=== PATIENT | male | born 1950 | race Caucasian/White ===

== ENCOUNTER → 2016-07-01 | Outpatient (CLI) | payer BC, OTHER ==
[~2016-07-01] MED LIST: ATOR10TA88 PO; CANA1TAB PO; HYDR-5688 PO; METF-384 PO; METF1TAB53 PO; MULT-513 PO; SITA100T3 PO
[2016-07-01 10:59] LABS: BASO % 0.1 %; BASO ABS # 0.01 K/uL (0-0.2); COMPLETE YES; IG% 0.1 %; LYMPH % 22.3 %; MEAN CELL VOLUME 92.6 fL (80-100); MEAN CORPUSCULAR HEMOGLOBIN 32.5 pg (25-34); MEAN CORPUSCULAR HGB CONC 35.1 g/dl (32-36); MEAN PLATELET VOLUME 9.4 fL (7.4-10.4); MONO % 5.9 %; NEUT % 70.6 %; PLATELET COUNT 206 K/uL (130-400); RED BLOOD COUNT 4.21 M/uL (4.7-6.1); WHITE BLOOD COUNT 6.74 K/uL (4.8-10.8)
[2016-07-01 11:17] LABS: ESTIMATED AVERAGE GLUCOSE 143 mg/dl; HA1C FLAG Normal (Normal)
[2016-07-01 11:31] LABS: CHOLESTEROL/HDL RATIO 2.1; PROSTATE SPECIFIC ANTIGEN 3.64 ng/ml (0.000-4.000)
--- NOTE | 2016-09-06 10:08 | CODING QUERY MEDICAL NECESSITY ---
SUPPORTING DIAGNOSIS NEEDED Dr. Ventura, A supporting diagnosis is required for the test/procedure performed on this patient in order for us to be reimbursed by the patient's insurance. Please provide a supporting diagnosis for the following test/procedure listed below next to the test name along with your signature. *If there is no additional diagnosis for this patient that would support the following test/procedure please document that below next to the test/procedure. Test(s)/Procedure(s) that require a supporting diagnosis: * [id number] GLYCATED HEMOGLOBIN DIAGNOSIS: * [id number] PSA DIAGNOSIS: DATE OF SERVICE: 07/01/16 Provider Signature: Date: Thank you Scott Ibarra Health Information Management Once completed, please kindly fax back to [phone] For questions please call [phone]
== END | disposition home or self-care (01) ==
LOC: C.LABBC 08:51
PROVIDERS: ATTEND Internal Medicine
DX: C44.91 Basal cell carcinoma of skin, unspecified (principal); R97.20 Elevated prostate specific antigen [PSA]; E11.9 Type 2 diabetes mellitus without complications

== ENCOUNTER → 2017-02-23 | Day surgery (SDC) | payer BC ==
[2017-02-08 11:20] VITALS: Ht 182.9 cm; Wt 111.4 kg
[~2017-02-23] VITALS: Ht 182.9 cm; Wt 111.4 kg
[~2017-02-23] MED LIST changes: -HYDR-5688 PO; +LIDOCAINE HCL 2% 2 ML VIAL (20MG/ML) ONE; +MIDAZOLAM HCL 1 MG/ML 2ML VIAL ONE; +ONDANSETRON INJ 2 MG/ML 2 ML VIAL ONE; +PROPOFOL IV EMULSION 10 MG/ML 20 ML VIAL IV ONE; -SITA100T3 PO; +SODIUM CHLORIDE 0.9% 500ML 500 ML IV ONE
[2017-02-23 13:38] VITALS: TEMP 37.1
--- NOTE | 2017-02-23 13:57 | Endo History and Physical ---
History & Physical Date of Service: Feb 23, 2017. Chief Complaint: screening,history of polyps Referring Physician: Dr. Patrick Ventura History of Present Illness 66 yo CM who presents for colonoscopy secondary to history of colon polyps and family history of colon cancer in father. Past Surgical History Hx Cardiac Surgery: No Hx Internal Defibrillator: No Hx Pacemaker: No Hx Abdominal Surgery: Yes (APPY) Hx of Implantable Prosthesis: No Hx Post-Op Nausea and Vomiting: No Hx Cancer Surgery: Yes (BCC REMOVAL ARM) Hx Thoracic Surgery: No Hx Orthopedic: No Hx Urinary Tract Surgery: No Family History Colon CA Social History Smoking Status: Never Smoker Hx Substance Use: No Hx Alcohol Use: No Allergies Coded Allergies: No Known Allergies (Verified , 02/23/17) Current Medications Reported Home Medications Medications Dose Route/Sig Max Daily Dose Days Date Category Invokana (Canagliflozin) 100 Mg Tab 1 Tab PO QAM 02/08/17 Reported Mvi With Minerals (Multivitamins/Minerals) Tab 1 Tab PO QAM 02/15/16 Reported Lipitor (Atorvastatin Calcium) 10 Mg Tab 10 Mg PO QPM 02/15/16 Reported Glucophage Ext Rel (Metformin Hcl) 1,000 Mg Tab 0.5 Tab PO QPM 02/15/16 Reported Glucophage (Metformin Hcl) 1,000 Mg Tab 1,000 Mg PO QAM 02/15/16 Reported Vital Signs Weight (Kilograms): 111.36 Height (Feet): 6 Height (Inches): 0 Date Time Temp Pulse Resp B/P (MAP) Pulse Ox O2 Delivery O2 Flow Rate FiO2 02/23/17 13:38 37.1 73 18 154/84 (107) 98 Room Air Physical Exam General Appearance: WD/WN, no apparent distress Respiratory/Chest: Auscultation: breath sounds normal Cardiovascular: Heart Auscultation: RRR Abdomen: Bowel Sounds: normal Inspection & Palpation: soft, non-distended, no tenderness, guarding & rebound Assessment and Plan Assessment: 66 yo CM who presents for colonoscopy secondary to history of colon polyps and family history of colon cancer in father. Plan: Proceed with colonoscopy.
--- NOTE | 2017-02-23 14:20 | GI REPORT ---
Procedure Date: 02/23/2017 2:01 PM Procedure: Colonoscopy Indications: High risk colon cancer surveillance: Personal history of colonic polyps, Family history of colon cancer in a first-degree relative Medicines: Monitored Anesthesia Care Complications: No immediate complications. Estimated Blood Loss: Estimated blood loss: none. Procedure: Pre-Anesthesia Assessment: - Prior to the procedure, a History and Physical was performed, and patient medications and allergies were reviewed. The patient's tolerance of previous anesthesia was also reviewed. The risks and benefits of the procedure and the sedation options and risks were discussed with the patient. All questions were answered, and informed consent was obtained. Prior Anticoagulants: The patient has taken no previous anticoagulant or antiplatelet agents. ASA Grade Assessment: II - A patient with mild systemic disease. After reviewing the risks and benefits, the patient was deemed in satisfactory condition to undergo the procedure. After I obtained informed consent, the scope was passed under direct vision. Throughout the procedure, the patient's blood pressure, pulse, and oxygen saturations were monitored continuously. The scope was introduced through the anus and advanced to the cecum, identified by appendiceal orifice and ileocecal valve. The colonoscopy was performed without difficulty. The patient tolerated the procedure well. The quality of the bowel preparation was good. The ileocecal valve, appendiceal orifice, and rectum were photographed. Findings: A 6 mm polyp was found in the transverse colon. The polyp was sessile. The polyp was removed with a hot snare. Resection and retrieval were complete. Multiple small-mouthed diverticula were found in the sigmoid colon. Impression: - One 6 mm polyp in the transverse colon, removed with a hot snare. Resected and retrieved. - Diverticulosis in the sigmoid colon. Recommendation: - Resume previous diet. - Continue present medications. - Repeat colonoscopy for surveillance based on pathology results. - Return to primary care physician as previously scheduled. Zac Cerda, DO 02/23/2017 2:20:21 PM This report has been signed electronically. Note Initiated On: 02/23/2017 2:01 PM I attest to the content of the Intraoperative Record and orders documented therein, exceptions below
--- NOTE | 2017-02-23 14:21 | Discharge Instructions ---
Endoscopy Patient Instructions Date / Procedure(s) Performed Feb 23, 2017. Colonoscopy Allergy Information Coded Allergies: No Known Allergies (Verified , 02/23/17) Discharge Date / Findings Feb 23, 2017. Colon polyp Diverticulosis Medication Instructions OK to resume all medications today as prescribed Reported Home Medications Medications Dose Route/Sig Max Daily Dose Days Date Category Invokana (Canagliflozin) 100 Mg Tab 1 Tab PO QAM 02/08/17 Reported Mvi With Minerals (Multivitamins/Minerals) Tab 1 Tab PO QAM 02/15/16 Reported Lipitor (Atorvastatin Calcium) 10 Mg Tab 10 Mg PO QPM 02/15/16 Reported Glucophage Ext Rel (Metformin Hcl) 1,000 Mg Tab 0.5 Tab PO QPM 02/15/16 Reported Glucophage (Metformin Hcl) 1,000 Mg Tab 1,000 Mg PO QAM 02/15/16 Reported Provider Instructions Activity Restrictions - No exercising or heavy lifting for 24 hours. - Do not drink alcohol the day of the procedure. - Do not drive a car or operate machinery until the day after the procedure. - Do not make any important decisions or sign important papers in 24 hours after the procedure. Following Day: - Return to full activity which may include returning to work/school. Diet Start your diet with liquids and light foods (jello, soup, juice, toast). Then eat your usual diet if not nauseated. Treatment For Common After Affects For mild abdominal pain, bloating, or excessive gas: - Rest - Eat lightly - Lie on right side Follow-Up Information Follow-up with Dr. Patrick Ventura as scheduled Anesthesia Information What You Should Know You have had a procedure that required some medicine to reduce anxiety and discomfort. This treatment is called moderate sedation. After receiving the treatment, you may be sleepy, but you will be able to breathe on your own. The effects of the treatment may last for several hours. Follow these instructions along with Activity/Diet recommendations noted above: * Do NOT do anything where dizziness or clumsiness would be dangerous. * Rest quietly at home today, then you can be up and about tomorrow. * Have a responsible person stay with you the rest of today. * You may have had an I.V. today. If so, you may take the dressing off later today. Recommendations Call your doctor if: * Trouble breathing * Continuous vomiting for more than 24 hours * Temperature above 101 degrees * Severe abdominal pain or bloating * Pain not relieved by pain medicine ordered * There is increased drainage or redness from any incision * A large amount of rectal bleeding greater than 2-3 tablespoons. (If you had a polyp/s removed or have hemorrhoids, a small amount of blood - from the rectum is to be expected.) * You have any unanswered questions or concerns. IN THE EVENT OF A SERIOUS EMERGENCY, GO TO THE NEAREST EMERGENCY ROOM Your discharge instructions were prepared by provider Zac Cerda. Patient Instructions Signature Page Naun Lisa Patient (or Guardian) Signature/Date: I have read and understand the instructions given to me by my caregivers. Caregiver/RN/Doctor Signature/Date: The above-named patient and/or guardian has received patient instructions on this date. + Original Patient Signature Page (only) stays with chart. Please make copy for patient.
--- NOTE | 2017-02-23 14:49 | Anesthesiology Progress Note ---
Anesthesia Post Op Note Date & Time Feb 23, 2017 at 14:48 Vital Signs Pain Intensity: 0 Vital Signs Past 12 Hours Date Time Temp Pulse Resp B/P (MAP) Pulse Ox O2 Delivery O2 Flow Rate FiO2 02/23/17 14:37 67 18 137/88 (104) 96 Room Air 02/23/17 14:22 61 18 153/76 (101) 95 Room Air 02/23/17 13:38 37.1 73 18 154/84 (107) 98 Room Air Notes Mental Status: alert / awake / arousable, participated in evaluation Pt Amnestic to Procedure: Yes Nausea / Vomiting: adequately controlled Pain: adequately controlled Airway Patency, RR, SpO2: stable & adequate BP & HR: stable & adequate Hydration State: stable & adequate Anesthetic Complications: no major complications apparent
[2017-02-23 14:50] VITALS: BP 156/71; PULSE 68; O2SAT 97
== END | disposition home or self-care (01) ==
LOC: C.GI 13:15
PROVIDERS: ATTEND Internal Medicine
DX: Z12.11 Encounter for screening for malignant neoplasm of colon (principal); D12.3 Benign neoplasm of transverse colon; K57.30 Diverticulosis of large intestine without perforation or abscess without bleeding; Z80.0 Family history of malignant neoplasm of digestive organs; E11.9 Type 2 diabetes mellitus without complications

== ENCOUNTER → 2017-10-09 | Outpatient (CLI) | payer BC ==
[~2017-10-09] MED LIST changes: +ATOR10TA82 PO; -ATOR10TA88 PO; -LIDOCAINE HCL 2% 2 ML VIAL (20MG/ML) ONE; -MIDAZOLAM HCL 1 MG/ML 2ML VIAL ONE; -ONDANSETRON INJ 2 MG/ML 2 ML VIAL ONE; -PROPOFOL IV EMULSION 10 MG/ML 20 ML VIAL IV ONE; -SODIUM CHLORIDE 0.9% 500ML 500 ML IV ONE
[2017-10-09 12:24] LABS: BASO % 0.1 %; BASO ABS # 0.01 K/uL (0-0.2); EOS % 1.6 %; EOS ABS # 0.12 K/uL (0-0.5); HEMATOCRIT 45.2 % (42-52); HEMOGLOBIN 15.9 g/dL (14.0-18.0); IG# 0.02 K/uL (0.00-0.02); LYMPH % 25.4 %; LYMPH ABS # 1.94 K/uL (1.2-3.4); MEAN CELL VOLUME 93.4 fL (80-100); MEAN CORPUSCULAR HEMOGLOBIN 32.9 pg (25-34); MEAN CORPUSCULAR HGB CONC 35.2 g/dl (32-36); MEAN PLATELET VOLUME 9.5 fL (7.4-10.4); MONO % 6.7 %; MONO ABS # 0.51 K/uL (0.11-0.59); NEUT % 65.9 %; NEUT ABS # 5.05 K/uL (1.4-6.5); PLATELET COUNT 199 K/uL (130-400); RED CELL DISTRIBUTION WIDTH CV 12.5 % (11.5-14.5); RED CELL DISTRIBUTION WIDTH SD 42.5 fL (36.4-46.3); WHITE BLOOD COUNT 7.65 K/uL (4.8-10.8)
[2017-10-09 12:42] LABS: HEMOGLOBIN A1C 7.4 % (4.5-5.6)
[2017-10-09 12:49] LABS: ALBUMIN 4.2 gm/dl (3.4-5.0); ALT/SGPT 38 U/L (12-78); AST/SGOT 27 U/L (15-37); BLOOD UREA NITROGEN 24 mg/dl (7-18); CALCIUM 9.4 mg/dl (8.5-10.1); CARBON DIOXIDE 26 mmol/L (21-32); CHOLESTEROL 172 mg/dl (0-200); CREATININE 0.95 mg/dl (0.60-1.40); GLUCOSE 128 mg/dl (70-99); SODIUM 139 mmol/L (136-145)
[2017-10-09 12:52] LABS: ALKALINE PHOSPHATASE 114 U/L (45-117); LDL CHOLESTEROL CALCULATED 76 mg/dl; TOTAL PROTEIN 7.8 gm/dl (6.4-8.2)
== END | disposition home or self-care (01) ==
LOC: C.LAB1850 10:31
PROVIDERS: ATTEND Internal Medicine
DX: Z00.00 Encounter for general adult medical examination without abnormal findings (principal); N40.3 Nodular prostate with lower urinary tract symptoms; R03.0 Elevated blood-pressure reading, without diagnosis of hypertension; E11.9 Type 2 diabetes mellitus without complications; G47.33 Obstructive sleep apnea (adult) (pediatric); D36.9 Benign neoplasm, unspecified site

== ENCOUNTER 2024-09-25 13:08 | Inpatient (IN) ==
--- NOTE | 2024-09-25 13:43 | XRay Report ---
XR ankle RT min 3V routine CLINICAL HISTORY: fall COMPARISON: None FINDINGS: There is an oblique fracture of the distal fibular shaft. There is an avulsion fracture of the medial malleolus. There is medial translation of the distal tibia in relationship to the talar d ome. On the lateral view, the posterior malleolus appears intact. Posterior aspect of the talar dome is flattened and an associated posterior talar fracture is not excluded. IMPRESSION: Unstable bimalleolar fracture with posterior and medial displacement of the distal tibia in relationship to the talus. Flattening of the talar dome on the lateral view suggestive of an assoc iated posterior talar fracture. ACT 112: Negative or not required by law. Electronically signed by: Vinita Diego M.D. 09/25/2024 1:42 PM
--- NOTE | 2024-09-25 13:44 | XRay Report ---
XR chest 1V portable CLINICAL HISTORY: new afib COMPARISON STUDY: 03/28/2020 FINDINGS: Single view portable chest is unchanged demonstrating cardiomegaly and mild pulmonary vascu lar congestion. No airspace opacity or pleural effusion. There is no pneumothorax. There is no medias tinal widening. IMPRESSION: Stable exam; no acute process identified. ACT 112: Negative or not required by law. Electronically signed by: Vinita Diego M.D. 09/25/2024 1:43 PM
[2024-09-25 13:46] LABS: Basophils # (auto) 0.01 K/uL (0.00-0.20); Basophils % (auto) 0.1 %; Eosinophils # (auto) 0.08 K/uL (0.00-0.50); Eosinophils % (auto) 0.6 %; Hematocrit (blood only) 45.1 % (42.0-52.0); Hemoglobin 15.7 g/dl (14.0-18.0); Immature Granulocytes # (auto) 0.05 K/uL (0.01-0.20); Immature Granulocytes % (auto) 0.4 %; Lymphocytes # (auto) 1.21 K/uL (1.20-3.40); Lymphocytes % (auto) 9.7 %; Mean Corpuscular Hemoglobin 32.8 pg (25.0-34.0); Mean Corpuscular Hgb Conc 34.8 g/dL (32.0-36.0); Mean Corpuscular Volume 94.4 fL (80.0-100.0); Mean Platelet Volume 9.1 fL (9.4-12.4); Monocytes # (auto) 0.65 K/uL (0.11-0.59); Monocytes % (auto) 5.2 %; Neutrophils # (auto) 10.47 K/uL (1.40-6.50); Platelet Count 193 K/uL (130-400); RDW Coefficient of Variation 11.9 % (11.5-14.5); RDW Standard Deviation 41.5 fL (36.4-46.3); Red Blood Count 4.78 M/uL (4.70-6.10); White Blood Count 12.47 K/ul (4.8-10.8)
[2024-09-25 14:07] LABS: Albumin Globulin Ratio 1.6 (0.9-2); Albumin Level 4.4 gm/dl (3.4-5.0); BUN Creatinine Ratio 28.4 (10-20); Bilirubin,Total 0.8 mg/dl (0.2-1.0); Calcium 9.5 mg/dl (8.6-10.3); Creatinine Clr Calc Pharmacy 88.7 ml/min; Globulin 2.8 gm/dl (2.5-4.0); Potassium 4.2 mmol/L (3.5-5.1); Total Protein 7.2 gm/dl (6.0-8.3)
[2024-09-25 14:12] LABS: Partial Thromboplastin Ratio 0.9; Partial Thromboplastin Time 23 Seconds (21-31)
[2024-09-25] MEDS: KETOROLAC TROMETHAMINE 15 MG/ML VIAL IV ONE (14:23)
[2024-09-25] MEDS: MoRPHine SULFATE 4 MG/ML 1 ML CARP\\VIAL IV STA ×2 (14:26→20:18)
--- NOTE | 2024-09-25 14:45 | Emergency Department Note ---
History of Present Illness General Chief complaint: Fall Stated complaint: FALL, R ANKLE INJURY, CARDIAC ASSESSMENT Time Seen by Provider: 09/25/24 13:40 Source: patient Mode of arrival: EMS Limitations: physical limitation History of Present Illness Maximum Pain Intensity: 10 Patient is a 74-year-old male presents with right ankle injury after sliding in the mud while doing yard work today. Obvious deformity and swelling to the right ankle. No open fracture noted. EMS gave patient IV pain medication and noticed he was in new onset atrial fibrillation. Patient denies any head, neck, back injury. Home Medications Medication Instructions Recorded Confirmed Type multivitamin (Multiple Vitamins 1 tab PO QAM 02/21/19 09/25/24 History tablet) blood sugar diagnostic (Leap In EntertainmentTouch #50 ea 06/30/20 09/25/24 Rx Verio test strips) blood-glucose meter ([employer]Touch #1 ea 06/30/20 09/25/24 Rx Verio Flex Start kit) lancets 33 gauge (OneTouch Delica #100 ea 06/30/20 09/25/24 Rx Lancets) metformin 1,000 mg tablet 1,000 mg PO BID #180 tabs 02/26/24 09/25/24 Rx ramipril 5 mg capsule 5 mg PO QAM #90 caps 04/11/24 09/25/24 Rx atorvastatin 10 mg tablet 10 mg PO HS #90 tabs 05/15/24 09/25/24 Rx canagliflozin 300 mg tablet 300 mg PO DAILY 09/25/24 09/25/24 History (Invokana) Allergies Allergy/AdvReac Type Severity Reaction Status Date / Time No Known Allergies Allergy Verified 07/08/24 08:40 Past Med/Surg History Problem List (Updated 09/25/24 @ 16:34 by Chuck De Anda MD) Atrial flutter (Acute) Bimalleolar ankle fracture (Acute) Closed right ankle fracture Sinusitis Erectile dysfunction History of colon polyps Encounter for pre-operative examination Venous insufficiency of right lower extremity (Chronic) Dyspnea on exertion (Chronic) Type 2 diabetes mellitus (Chronic) HTN (hypertension) (Chronic) Hyperlipidemia LDL goal <100 (Chronic) Family history of colon cancer (Chronic) History of colon polyps (Chronic) tubular adenoma Skin cancer (Chronic) Obstructive sleep apnea (Chronic) 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 Baez History of varicose vein ligation and stripping History of colonoscopy H/O shoulder surgery RT History of appendectomy Family History Unknown Arteriosclerotic cardiovascular disease (ASCVD) Father Diabetes Colon cancer Hypertension Macular degeneration Mother Liver cancer Brother Hypertension Epilepsy Social History Smoking Status: Never smoker Second Hand Exposure: No; Do You Dip or Chew Tobacco: No; Hx Alcohol Use: Yes Alcohol type: beer Alcohol Intake Frequency: 2-4 x/Month Hx Substance Use: No Preferred Language: Amharic Communication Ability: Effective Visual Impairment: Limited Hearing Ability: Normal Oyster Fisherman Required: No Beliefs That Will Affect Care: None marital status: Current Living Situation: Spouse current occupational status: employed current occupation: [employer] part-time Feels Safe at Home: Yes Childhood Exposure to Second-Hand Smoke: Yes Diet: regular caffeine: No Dental Care, Regularly: Yes Physical Activity Frequency: 5-6 Times per Week Seatbelt Use: always Sunscreen Use: Yes Do you think of yourself as: straight/heterosexual Assistive Devices: Glasses Review of Systems See HPI for pertinent positives & negatives. Physical Exam Vital Signs Vital Signs - 24 hr 09/25/24 13:12 09/25/24 13:35 09/25/24 14:27 Temperature 36.8 C Temperature Source Oral Pulse Rate 99 H 100 H Pulse Rate [Left Finger] 94 H Pulse Rhythm [Left Finger] Pulse Strength [Left Finger] Respiratory Rate 18 16 Respiratory Effort / Characteristics Respiratory Depth Respiratory Pattern Blood Pressure 147/90 H Blood Pressure [Right Arm] 133/102 H Blood Pressure Mean 109 Blood Pressure Mean [Right Arm] 112 Blood Pressure Position Sitting Blood Pressure Position [Right Arm] Pulse Oximetry 98 97 Oxygen Delivery Method Room Air Sepsis Recent Fever Within 48 Hours No Sepsis New/Unexplained Change in Mental Status No Sepsis Action Taken by Nursing No Action Required 09/25/24 15:30 09/25/24 16:25 Temperature Temperature Source Pulse Rate Pulse Rate [Left Finger] 99 H 97 H Pulse Rhythm [Left Finger] Regular Irregular Pulse Strength [Left Finger] Normal Normal Respiratory Rate 20 18 Respiratory Effort / Characteristics Non-Labored Spontaneous Non-Labored Spontaneous Respiratory Depth Normal Normal Respiratory Pattern Regular Regular Blood Pressure Blood Pressure [Right Arm] 148/72 H 147/86 H Blood Pressure Mean Blood Pressure Mean [Right Arm] 97 106 Blood Pressure Position Blood Pressure Position [Right Arm] Sitting Sitting Pulse Oximetry 98 96 Oxygen Delivery Method Room Air Room Air Sepsis Recent Fever Within 48 Hours Sepsis New/Unexplained Change in Mental Status Sepsis Action Taken by Nursing See below Constitutional WD/WN, vitals as above Respiratory normal respiratory effort, lungs clear to auscultation Cardiovascular Rate/Rhythm: regular rhythm and + tachycardic Musculoskeletal Obvious deformity to the right ankle, ecchymosis and edema noted to the medial malleoli with significant tenderness to palpation, ankle is held in plantarflexion with limited dorsiflexion secondary to pain, full range of motion of the digits of the right foot is intact, dopplered DP pulses noted on the right Course Administered Medications Discontinued Medications Fentanyl Citrate (Fentanyl Citrate Pf 100 Mcg/2 Ml Vial) 50 mcg IV NOW STA Stop: 09/25/24 16:02 Last Admin: 09/25/24 16:07 Dose: 50 mcg Documented By: FILIBERTO Fentanyl Citrate (Fentanyl Citrate Pf 100 Mcg/2 Ml Vial) 50 mcg IV NOW STA Stop: 09/25/24 16:20 Last Admin: 09/25/24 16:20 Dose: 50 mcg Documented By: FILIBERTO Ketorolac Tromethamine (Ketorolac Tromethamine 15 Mg/Ml Vial) 15 mg IV NOW ONE Stop: 09/25/24 14:16 Last Admin: 09/25/24 14:23 Dose: 15 mg Documented By: FILIBERTO Morphine Sulfate (Morphine Sulfate 4 Mg/Ml 1 Ml Carp\Vial) 4 mg IV NOW STA Stop: 09/25/24 14:16 Last Admin: 09/25/24 14:26 Dose: 4 mg Documented By: FILIBERTO Medical Decision Making Differential Diagnosis Ankle dislocation, fracture, ankle sprain Laboratory Data 09/25/24 13:25 09/25/24 13:25 Lab Results 09/25/24 Range/Units 13:25 WBC 12.47 H (4.8-10.8) K/ul RBC 4.78 (4.70-6.10) M/uL Hgb 15.7 (14.0-18.0) g/dl Hct 45.1 (42.0-52.0) % MCV 94.4 (80.0-100.0) fL MCH 32.8 (25.0-34.0) pg MCHC 34.8 (32.0-36.0) g/dL RDW Std Deviation 41.5 (36.4-46.3) fL RDW Coeff of Claude 11.9 (11.5-14.5) % Plt Count 193 (130-400) K/uL MPV 9.1 L (9.4-12.4) fL Immature Gran % (Auto) 0.4 % Neut % (Auto) 84.0 % Lymph % (Auto) 9.7 % [place] % (Auto) 5.2 % Eos % (Auto) 0.6 % Baso % (Auto) 0.1 % Neut # (Auto) 10.47 H (1.40-6.50) K/uL Lymph # (Auto) 1.21 (1.20-3.40) K/uL [place] # (Auto) 0.65 H (0.11-0.59) K/uL Eos # (Auto) 0.08 (0.00-0.50) K/uL Baso # (Auto) 0.01 (0.00-0.20) K/uL Immature Gran # (Auto) 0.05 (0.01-0.20) K/uL APTT 23 (21-31) Seconds PTT Ratio 0.9 Sodium 136 (136-145) mmol/L Potassium 4.2 (3.5-5.1) mmol/L Chloride 102 (98-107) mmol/L Carbon Dioxide 25 (21-32) mmol/L Anion Gap 9 (3-11) BUN 27 H (6-23) mg/dl Creatinine 0.95 (0.6-1.4) mg/dl Est Cr Clr Drug Dosing 88.7 ml/min eGFR 85.04 BUN/Creatinine Ratio 28.4 H (10-20) Glucose 231 H (70-99(Fasting)) mg/dl Calcium 9.5 (8.6-10.3) mg/dl Total Bilirubin 0.8 (0.2-1.0) mg/dl AST 20 (13-39) U/L ALT 17 (7-52) U/L Alkaline Phosphatase 101 (34-104) U/L Total Protein 7.2 (6.0-8.3) gm/dl Albumin 4.4 (3.4-5.0) gm/dl Globulin 2.8 (2.5-4.0) gm/dl Albumin/Globulin Ratio 1.6 (0.9-2) Imaging Data Radiologist's Impression: Ankle X-Ray 09/25/24 13:25 XR ankle RT min 3V routine CLINICAL HISTORY: fall COMPARISON: None FINDINGS: There is an oblique fracture of the distal fibular shaft. There is an avulsion fracture of the medial malleolus. There is medial translation of the distal tibia in relationship to the talar dome. On the lateral view, the posterior malleolus appears intact. Posterior aspect of the talar dome is flattened and an associated posterior talar fracture is not excluded. IMPRESSION: Unstable bimalleolar fracture with posterior and medial displacement of the distal tibia in relationship to the talus. Flattening of the talar dome on the lateral view suggestive of an associated posterior talar fracture. ACT 112: Negative or not required by law. Electronically signed by: Vinita Diego M.D. 09/25/2024 1:42 PM Chest X-Ray 09/25/24 13:25 XR chest 1V portable CLINICAL HISTORY: new afib COMPARISON STUDY: 03/28/2020 FINDINGS: Single view portable chest is unchanged demonstrating cardiomegaly and mild pulmonary vascular congestion. No airspace opacity or pleural effusion. There is no pneumothorax. There is no mediastinal widening. IMPRESSION: Stable exam; no acute process identified. ACT 112: Negative or not required by law. Electronically signed by: Vinita Diego M.D. 09/25/2024 1:43 PM ECG Data Attestation: I personally reviewed and interpreted this ECG as follows: Indication: + other (pre-op ) Rate (beats per minute): 79 Rhythm: + atrial flutter ECG Intervals/blocks: + Right Bundle branch block, + Normal NM and + Normal QT-c Change: the following changes noted (New atrial flutter compared to ECG from 03/28/2020) MDM Narrative Patient is a 74-year-old male presents with right ankle injury after slipping on mud today. No evidence of open fracture. Neurovascularly intact. X-ray shows an unstable bimalleolar fracture with displacement of the ankle joint. I spoke to the PA with orthopedics who recommends splinting and plan for surgery in the morning with Dr. Walls. Patient noted to be in atrial flutter on arrival. This is a new diagnosis for him. Rate stabilized. No reported head, neck, back injury. Stable for admission to hospitalist service for preop clearance. Impression & Plan Bimalleolar ankle fracture, Atrial flutter Admit with plan for surgery tomorrow Discharge Plan Visit Data Chief Complaint: Fall Stated Complaint: FALL, R ANKLE INJURY, CARDIAC ASSESSMENT ED Provider: Chuck De Anda Discharge Problem: Bimalleolar ankle fracture, Atrial flutter Forms Stand Alone Forms: My [facility] Prescriptions Prescriptions: No Action metformin 1,000 mg tablet 1,000 mg PO BID Qty: 180 3RF ramipril 5 mg capsule 5 mg PO QAM Qty: 90 3RF atorvastatin 10 mg tablet 10 mg PO HS Qty: 90 3RF Rx Instructions: for cholesterol multivitamin [Multiple Vitamins] tablet 1 tab PO QAM (DME) OneTouch Verio test strips Strip See Rx Instructions .ROUTE .MEDSUPPLY Qty: 50 3RF Rx Instructions: test twice daily. (DME) blood-glucose meter [OneTouch Verio Flex Start] Kit See Rx Instructions .ROUTE .MEDSUPPLY Qty: 1 0RF Rx Instructions: As directed (DME) lancets [OneTouch Delica Lancets] 33 gauge misc See Rx Instructions .ROUTE .MEDSUPPLY Qty: 100 0RF Rx Instructions: As directed Invokana 300 mg tablet 300 mg PO DAILY Referrals Referrals: Janessa Rivera CRNP [Primary Care Provider] -
[2024-09-25] MEDS: fentaNYL citrate PF 100 MCG/2 ML VIAL IV STA ×2 (16:07→16:20)
--- NOTE | 2024-09-25 16:23 | Orthopedic Consultation ---
Date of Service September 25, 2024 Assessment & Plan (1) Closed right ankle fracture: I discussed diagnosis and treatment options with him and his today. We recommend ORIF of the ankle. He will be admitted to the hospitalist service, also has this new onset atrial flutter. Closed reduction and splinting performed in the ER by myself. He tolerated this well. Post reduction xrays show improved alignment. Ice/elevate right ankle. NPO after midnight for surgery tomorrow. History of Present Illness Reason for Consultation: . Requesting Physician: . .Zuhair is a 74 year old patient being admitted with a unstable bimalleolar ankle fracture. He was doing some yard work today and slipped in some mud, injuring his ankle. He had obvious deformity of the ankle. He was also diagnosed with new onset atrial flutter upon arrival at the ER. Allergies Allergy/AdvReac Type Severity Reaction Status Date / Time No Known Allergies Allergy Verified 07/08/24 08:40 Home Medications Medication Instructions Recorded Confirmed Type multivitamin (Multiple Vitamins 1 tab PO QAM 02/21/19 09/25/24 History tablet) blood sugar diagnostic (TrendrTouch #50 ea 06/30/20 09/25/24 Rx Verio test strips) blood-glucose meter (OneTouch #1 ea 06/30/20 09/25/24 Rx Verio Flex Start kit) lancets 33 gauge (OneTouch Delica #100 ea 06/30/20 09/25/24 Rx Lancets) metformin 1,000 mg tablet 1,000 mg PO BID #180 tabs 02/26/24 09/25/24 Rx ramipril 5 mg capsule 5 mg PO QAM #90 caps 04/11/24 09/25/24 Rx atorvastatin 10 mg tablet 10 mg PO HS #90 tabs 05/15/24 09/25/24 Rx canagliflozin 300 mg tablet 300 mg PO DAILY 09/25/24 09/25/24 History (Invokana) Past Med/Surg History Problem List Atrial flutter (Acute) Bimalleolar ankle fracture (Acute) Closed right ankle fracture Sinusitis Erectile dysfunction History of colon polyps Encounter for pre-operative examination Venous insufficiency of right lower extremity (Chronic) Dyspnea on exertion (Chronic) Type 2 diabetes mellitus (Chronic) HTN (hypertension) (Chronic) Hyperlipidemia LDL goal <100 (Chronic) Family history of colon cancer (Chronic) History of colon polyps (Chronic) tubular adenoma Skin cancer (Chronic) Obstructive sleep apnea (Chronic) Type 2 diabetes mellitus with albuminuria (Acute) Basal cell carcinoma of skin (Acute) Chronic prostatitis Elevated PSA, less than 10 ng/ml 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 Baez History of varicose vein ligation and stripping History of colonoscopy H/O shoulder surgery RT History of appendectomy Family History Unknown Arteriosclerotic cardiovascular disease (ASCVD) Father Diabetes Colon cancer Hypertension Macular degeneration Mother Liver cancer Brother Hypertension Epilepsy Social History Smoking Status: Never smoker Second Hand Exposure: No; Do You Dip or Chew Tobacco: No; Hx Alcohol Use: Yes Alcohol type: beer Alcohol Intake Frequency: 2-4 x/Month Hx Substance Use: No Preferred Language: [place] Communication Ability: Effective Visual Impairment: Limited Hearing Ability: Normal Cancer Genetic Counselor Required: No Beliefs That Will Affect Care: None marital status: Current Living Situation: Spouse current occupational status: employed current occupation: [employer] part-time Feels Safe at Home: Yes Childhood Exposure to Second-Hand Smoke: Yes Diet: regular caffeine: No Dental Care, Regularly: Yes Physical Activity Frequency: 5-6 Times per Week Seatbelt Use: always Sunscreen Use: Yes Do you think of yourself as: straight/heterosexual Assistive Devices: Glasses Review of Systems All systems reviewed & are unremarkable except as noted in HPI & below. Physical Exam . alert and oriented. NAD Right ankle: obvious deformity, tenting of the skin medially but skin is intact. Tender to palpation. Able to move toes. NVI Results & Data Results & Data Laboratory Results . Diagnostic Findings .xrays of the ankle show a displaced bimalleolar ankle fx with lateral subluxation PG Care Time/CCT Total # of Minutes Spent Total Time Spent with Patient: Total time spent is greater than 50% in coordination of care (as documented) at patient's floor/unit and/or counseling patient: Coding Level of Care Code 14981 IN/OBS CONSULT LVL 4,60M (57 - DECISION FOR SURGERY) Diagnoses Closed right ankle fracture S82.891A
--- NOTE | 2024-09-25 17:05 | XRay Report ---
Clinical History: Postreduction 2 views of the right ankle are submitted for review. No prior examination is available for comparison Findings: There is an acute comminuted fracture of the medial malleolus with mild displacement. There is an acute fracture of the distal fibular shaft and metaphysis with mild displacement. There is a mild displaced fracture of the posterior malleolus. Cast material is in place, which obscures fine bony detail. No subluxation or dislocation is seen. There is a dorsal calcaneal spur. No significant arthritic changes are noted. No other osseous abnormality is identified. There are no radiopaque foreign bodies. Impression: Acute fractures of the medial malleolus, posterior malleolus, and the distal fibular shaft and metaphysis ACT 112: Positive. There are findings on this exam that require communication between the performing entity and the patient following Patient Test Result Information Act ([place] ACT 112) guidelines. Electronically signed by Kana Stanton 09-25-2024 5:04 PM
--- NOTE | 2024-09-25 18:09 | History & Physical Report ---
Date of Service September 25, 2024 Assessment & Plan (1) Bimalleolar ankle fracture: (2) Closed right ankle fracture: (3) Atrial flutter: (4) Type 2 diabetes mellitus: (5) HTN (hypertension): (6) Obstructive sleep apnea: (7) Hyperlipidemia LDL goal <100: (8) BPH (benign prostatic hyperplasia): (9) DVT prophylaxis: Plan 74yo male with history of T2DM, HTN, hyperlipidemia, BPH, and TRACI (noncompliant with CPAP) presented to the ER via EMS after falling in his yard earlier today. This fall resulted in a complex right ankle fracture involving b/l malleoli. Seen by orthopedics and right ankle placed in splint. Operative management of the bimalleolar fractures recommended to the patient. Further, at time of admission, patient is in new-onset rate-controlled atrial flutter. #right bimalleolar ankle fracture - * s/p splint placement in the ER by orthopedics * Non weight-bearing status ordered by ortho * check 25-OH vit D level in am * pain control with morphine prn * given the patient's new-onset atrial flutter he needs baseline echocardiogram and would benefit from cardiology consultation (see below) * since he will need echo/cardiology consult tomorrow this will likely preclude surgery on 09/26 but if aflutter remains stable/controlled 09/27 surgery should be possible * appreciate ortho assistance #new-onset rate-controlled aflutter - * has never had afib or aflutter in the past * no obvious symptoms related to the aflutter * fortunately he has been rate-controlled since arrival to [facility] without AV julieta agents * place on telemetry * check baseline echo in AM * will ask [facility] Cardiology to see in consult * did discuss with pt & his the risk of stroke with aflutter/afib * given he needs R ankle surgery defer on anticoagulation until after surgery * of note - TSH in 06/2024 was wnl * check a mag level in am #T2DM - * check Hba1c in am * hold metformin, invokana, and TAMANNA * check BSGs ac/hs * add novolog SSI with meals/HS * add basal insulin as needed #HTN - * in light of upcoming surgery will hold TAMANNA * resume TAMANNA post-op if creatinine remains stable lakisha-operatively * if other BP control is needed consider amlodipine or even alpha snehal given h/o BPH #Hyperlipidemia - * cont statin #TRACI - * although he was diagnosed with TRACI in the past and prescribed CPAP he has not used the machine in several years * post-op watch for CO2 retention in light of untreated TRACI * untreated TRACI can worsen atrial dysrhythmias #Recent URI - * chest x-ray wnl * o2 sats wnl in room air * COVID/flu/RSV checked and negative * URI has improved #DVT proph - * defer on chemical means for now given upcoming surgery * place SCD on LLE * post-op consider therapeutic anticoagulation in the setting of his aflutter Pt's updated extensively at bedside Did send [place] correspondence to Dr Walls from orthopedics regarding the new- onset aflutter and that ideally we should get echo, cards consult, etc prior to his right ankle surgery This will likely push his surgery to 09/27/24 History of Present Illness Chief Complaint: fall, severe right ankle pain Primary Care Provider: DALIA Daniel 74yo male with history of T2DM, HTN, hyperlipidemia, and TRACI (noncompliant with CPAP) presented to the ER via EMS after falling in his yard earlier today. He reports he had been doing outside yard work and slipped on mud on an area of the grass that is sloped. He fell to the ground with his right leg caught underneath his body. He had immediate pain in his right ankle. Denies any other injury or pain in any other location. He knew he couldn't get up or weight bear so he called his to tell her what happened. Subsequently 911 was called and EMS was summoned to his home. In the ambulance the EMS providers noted he was in aflutter vs afib. Upon arrival to [facility] he was placed on monitors and was in a variable block aflutter with rates <100. He denies any recent palpitations or tachycardia. Denies any chest pain, dizziness or dyspnea prior to his fall today. He keeps an active lifestyle and in fact continues to work part-time at the [employer]. Orthopedics was consulted in the ER after x-rays of the right ankle revealed a bimalleolar fracture. Orthopedics placed Mr Lisa's ankle in a splint. To Mr Lisa's recollection he has never been diagnosed with aflutter or afib. Allergies Allergy/AdvReac Type Severity Reaction Status Date / Time No Known Allergies Allergy Verified 07/08/24 08:40 Home Medications Medication Instructions Recorded Confirmed Type multivitamin (Multiple Vitamins 1 tab PO QAM 02/21/19 09/25/24 History tablet) blood sugar diagnostic (OneTouch #50 ea 06/30/20 09/25/24 Rx Verio test strips) blood-glucose meter (OneTouch #1 ea 06/30/20 09/25/24 Rx Verio Flex Start kit) lancets 33 gauge (OneTouch Delica #100 ea 06/30/20 09/25/24 Rx Lancets) metformin 1,000 mg tablet 1,000 mg PO BID #180 tabs 02/26/24 09/25/24 Rx ramipril 5 mg capsule 5 mg PO QAM #90 caps 04/11/24 09/25/24 Rx atorvastatin 10 mg tablet 10 mg PO HS #90 tabs 05/15/24 09/25/24 Rx canagliflozin 300 mg tablet 300 mg PO DAILY 09/25/24 09/25/24 History (Invokana) Past Med/Surg History Problem List (Updated 09/25/24 @ 21:33 by William Gallardo MD) DVT prophylaxis BPH (benign prostatic hyperplasia) Atrial flutter (Acute) Bimalleolar ankle fracture (Acute) Closed right ankle fracture Sinusitis Erectile dysfunction History of colon polyps Encounter for pre-operative examination Venous insufficiency of right lower extremity (Chronic) Dyspnea on exertion (Chronic) Type 2 diabetes mellitus (Chronic) HTN (hypertension) (Chronic) Hyperlipidemia LDL goal <100 (Chronic) Family history of colon cancer (Chronic) History of colon polyps (Chronic) tubular adenoma Skin cancer (Chronic) Obstructive sleep apnea (Chronic) 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 Baez History of varicose vein ligation and stripping History of colonoscopy H/O shoulder surgery RT History of appendectomy Family History Unknown Arteriosclerotic cardiovascular disease (ASCVD) Father Diabetes Colon cancer Hypertension Macular degeneration Coronary heart disease multiple acute MIs Mother Liver cancer Brother Hypertension Epilepsy Social History (Updated 09/25/24 @ 21:26 by William Gallardo MD) Smoking Status: Never smoker Second Hand Exposure: No; Do You Dip or Chew Tobacco: No; Hx Alcohol Use: Yes Alcohol type: beer Alcohol Intake Frequency: 2-4 x/Month Hx Substance Use: No Preferred Language: Qatari Communication Ability: Effective Visual Impairment: Limited Hearing Ability: Normal Meter Setter Required: No Beliefs That Will Affect Care: None marital status: Current Living Situation: Spouse current occupational status: employed current occupation: [employer] part-time; worked full-time in [employer] at [employer] How many Children do You have: 1 Feels Safe at Home: Yes Safety Concerns: Feels Safe At This Time Childhood Exposure to Second-Hand Smoke: Yes Diet: regular caffeine: No Dental Care, Regularly: Yes Physical Activity Frequency: 5-6 Times per Week Seatbelt Use: always Sunscreen Use: Yes Do you think of yourself as: straight/heterosexual Assistive Devices: Glasses Review of Systems Review of Systems: gen - no fevers or chills, normal appetite, no weight changes eyes - no change in vision HENT - recent URI about 2 weeks ago with nasal congestion Pulm - recent URI with cough but no lower respiratory tract symptoms, no dyspnea, no ANDRADE CV - no recent chest pains, palpitations, LE edema, orthopnea GI - no abd pain, nausea, emesis, diarrhea - no dysuria musculo - severe right ankle pain, no other locations of pain skin - no rashes neuro - denies headache psych - no mood issues Physical Exam Physical Exam: gen - lying comfortably in bed, NAD, pleasant eyes - PERRL HENT - MMM, no lesions neck - supple, no lymph nodes, no JVD heart - irregular, s1 s2, no murmur; rate <100 lungs - CTA b/l; no rales or wheeze abd - soft NT ND BS+; scar RLQ ext - right ankle/foot in splint; cap refill right foot toes <2 sec; left foot/ankle w/o edema; pulses L foot 2+ musculo - splint R ankle as above; no other obvious locations of deformity or trauma skin - no rash neuro - strength 5/5 x 4 exts psych - a/o x 3 Results & Data Results & Data Vital Signs (Past 12 Hours) Vital Signs Temp Pulse Pulse Resp BP BP Pulse Ox 09/25/24 17:30 76 20 112/86 98 09/25/24 17:27 80 09/25/24 17:00 88 20 108/89 96 09/25/24 16:25 97 H 18 147/86 H 96 09/25/24 15:30 99 H 20 148/72 H 98 09/25/24 14:27 94 H 16 133/102 H 97 09/25/24 13:35 100 H 09/25/24 13:12 36.8 C 99 H 18 147/90 H 98 O2 Del Method 09/25/24 17:30 09/25/24 17:27 09/25/24 17:00 Room Air 09/25/24 16:25 Room Air 09/25/24 15:30 Room Air 09/25/24 14:27 09/25/24 13:35 09/25/24 13:12 Room Air Laboratory Results Laboratory Results - last 24 hr 09/25/24 09/25/24 09/25/24 13:25 20:20 21:02 WBC 12.47 H RBC 4.78 Hgb 15.7 Hct 45.1 MCV 94.4 MCH 32.8 MCHC 34.8 RDW Std Deviation 41.5 RDW Coeff of Claude 11.9 Plt Count 193 MPV 9.1 L Immature Gran % (Auto) 0.4 Neut % (Auto) 84.0 Lymph % (Auto) 9.7 [place] % (Auto) 5.2 Eos % (Auto) 0.6 Baso % (Auto) 0.1 Neut # (Auto) 10.47 H Lymph # (Auto) 1.21 [place] # (Auto) 0.65 H Eos # (Auto) 0.08 Baso # (Auto) 0.01 Immature Gran # (Auto) 0.05 APTT 23 PTT Ratio 0.9 Sodium 136 Potassium 4.2 Chloride 102 Carbon Dioxide 25 Anion Gap 9 BUN 27 H Creatinine 0.95 Est Cr Clr Drug Dosing 88.7 eGFR 85.04 BUN/Creatinine Ratio 28.4 H Glucose 231 H POC Glucose 167 H Calcium 9.5 Total Bilirubin 0.8 AST 20 ALT 17 Alkaline Phosphatase 101 Total Protein 7.2 Albumin 4.4 Globulin 2.8 Albumin/Globulin Ratio 1.6 SARS-CoV-2 (PCR) NEGATIVE Influenza Type A (PCR) Negative Influenza Type B (PCR) Negative RSV (RT-PCR) Negative Diagnostic Findings Ankle X-Ray 09/25/24 13:25 XR ankle RT min 3V routine CLINICAL HISTORY: fall COMPARISON: None FINDINGS: There is an oblique fracture of the distal fibular shaft. There is an avulsion fracture of the medial malleolus. There is medial translation of the distal tibia in relationship to the talar dome. On the lateral view, the posterior malleolus appears intact. Posterior aspect of the talar dome is flattened and an associated posterior talar fracture is not excluded. IMPRESSION: Unstable bimalleolar fracture with posterior and medial displacement of the distal tibia in relationship to the talus. Flattening of the talar dome on the lateral view suggestive of an associated posterior talar fracture. ACT 112: Negative or not required by law. Electronically signed by: Vinita Diego M.D. 09/25/2024 1:42 PM Chest X-Ray 09/25/24 13:25 XR chest 1V portable CLINICAL HISTORY: new afib COMPARISON STUDY: 03/28/2020 FINDINGS: Single view portable chest is unchanged demonstrating cardiomegaly and mild pulmonary vascular congestion. No airspace opacity or pleural effusion. There is no pneumothorax. There is no mediastinal widening. IMPRESSION: Stable exam; no acute process identified. ACT 112: Negative or not required by law. Electronically signed by: Vinita Diego M.D. 09/25/2024 1:43 PM Ankle X-Ray 09/25/24 16:30 Clinical History: Postreduction 2 views of the right ankle are submitted for review. No prior examination is available for comparison Findings: There is an acute comminuted fracture of the medial malleolus with mild displacement. There is an acute fracture of the distal fibular shaft and metaphysis with mild displacement. There is a mild displaced fracture of the posterior malleolus. Cast material is in place, which obscures fine bony detail. No subluxation or dislocation is seen. There is a dorsal calcaneal spur. No significant arthritic changes are noted. No other osseous abnormality is identified. There are no radiopaque foreign bodies. Impression: Acute fractures of the medial malleolus, posterior malleolus, and the distal fibular shaft and metaphysis ACT 112: Positive. There are findings on this exam that require communication between the performing entity and the patient following Patient Test Result Information Act ([place] ACT 112) guidelines. Electronically signed by Kana Stanton 09-25-2024 5:04 PM EKG - my reading - aflutter with variable block; rate <100; RBBB Code Status & VTE Plan Code Status full code PG Care Time/CCT Total # of Minutes Spent Total Time Spent with Patient: Total time spent is greater than 50% in coordination of care (as documented) at patient's floor/unit and/or counseling patient: Coding Level of Care Code 12402 INT INP/OBS CARE 3/75MIN Diagnoses Bimalleolar ankle fracture S82.843A Closed right ankle fracture S82.891A Atrial flutter I48.92 Type 2 diabetes mellitus without complication, without long-term current use of insulin E11.9 Diabetes mellitus complication status: without complication Diabetes mellitus nursing home insulin use: without ad terminal makeup operator use Essential hypertension I10 Hypertension type: essential hypertension Obstructive sleep apnea G47.33 Hyperlipidemia LDL goal <100 E78.5 BPH (benign prostatic hyperplasia) N40.0 DVT prophylaxis Z29.9 (4) Type 2 diabetes mellitus Diabetes mellitus complication status: without complication Diabetes mellitus ad terminal makeup operator insulin use: without ad terminal makeup operator use Qualified Code(s): E11.9 - Type 2 diabetes mellitus without complications (5) HTN (hypertension) Hypertension type: essential hypertension Qualified Code(s): I10 - Essential (primary) hypertension
[2024-09-25 21:30] LABS: Influenza A virus by PCR Negative (Neg); Influenza B virus by PCR Negative (Neg); RSV by PCR Negative (Neg); SARS CoV2 RNA(COVID-19) Ceph NEGATIVE (Negative)
[2024-09-25] MEDS: INSULIN ASPART PER UNIT CHARGE SC SCH (21:45)
[2024-09-25] MEDS: SODIUM CHLORIDE 0.9% 1,000 ML IV SCH (21:49)
[2024-09-25] MEDS: ATORVASTATIN 10 MG TAB PO SCH (22:26)
[2024-09-25] MEDS: MoRPHine SULFATE 2 MG/ML CARP IV PRN (23:07)
--- NOTE | 2024-09-26 05:42 | Electrocardiogram Report ---
Test Reason : Blood Pressure : */* mmHG Vent. Rate : 97 BPM Atrial Rate : 267 BPM P-R Int : * ms QRS Dur : 152 ms QT Int : 424 ms P-R-T Axes : 96 93 60 degrees QTcB Int : 538 ms Atrial flutter with variable A-V block Right bundle branch block Abnormal ECG When compared with ECG of 28-Mar-2020 00:04, Atrial flutter has replaced Sinus rhythm Confirmed by Vivek Helton ([id number]) on 09/26/2024 5:42:30 AM Referred By: REFERRED SELF Confirmed By: Vivek Helton
[2024-09-26 07:19] LABS: Hematocrit (blood only) 42.3 % (42.0-52.0); Hemoglobin 14.1 g/dl (14.0-18.0); Mean Corpuscular Hemoglobin 32.2 pg (25.0-34.0); Mean Corpuscular Hgb Conc 33.3 g/dL (32.0-36.0); Mean Corpuscular Volume 96.6 fL (80.0-100.0); Mean Platelet Volume 9.3 fL (9.4-12.4); Platelet Count 162 K/uL (130-400); RDW Coefficient of Variation 12.1 % (11.5-14.5); RDW Standard Deviation 43.7 fL (36.4-46.3); Red Blood Count 4.38 M/uL (4.70-6.10); White Blood Count 8.23 K/ul (4.8-10.8)
[2024-09-26 07:37] LABS: Estimated Average Glucose 183 mg/dl
[2024-09-26] MEDS: MULTIVITAMIN TAB PO SCH (08:05)
[2024-09-26] MEDS: ONDANSETRON INJ 2 MG/ML 2 ML VIAL IV PRN (08:06)
[2024-09-26 08:10] LABS: BUN Creatinine Ratio 31.3 (10-20); Creatinine Clr Calc Pharmacy 101.5 ml/min; Magnesium 2.1 mg/dl (1.7-2.4); Potassium 4.4 mmol/L (3.5-5.1)
--- NOTE | 2024-09-26 08:29 | Orthopedic Progress Note ---
Date of Service September 26, 2024 Assessment & Plan (1) Bimalleolar ankle fracture: Patient has a right bimalleolar ankle fracture. Plan is for surgical intervention with Dr. Walls, however a cardiology consult has been placed due to the patient's new onset of atrial fibrillation/flutter. Surgery will be held until rubber stamp maker sees the patient. Surgery will likely be tomorrow 09/27/2024. N.p.o. status can be lifted as per cardiology as long as there is nothing that they will plan to do for the patient. N.p.o. 00:00 on 09/27/2024. Laisha Magallon is a 74-year-old male who has a planned procedure for a right ankle open reduction internal fixation due to a fracture/dislocation that he had on 09/25/2024. He was reduced in the emergency department. He was placed in an Ortho-Glass splint and admitted for ambulatory dysfunction and for surgery. He unfortunately was found to have new onset atrial fibrillation/flutter with no known history of this. Cardiology was consulted. Surgery is going to be held until cardiology sees the patient. Review of Systems All systems reviewed & are unremarkable except as noted in HPI & below. Physical Exam General: Alert and oriented. No acute distress. Right ankle: His ankle is elevated with pillows. Splint is intact. He has good motion of his toes. Neuro vastly intact. Results & Data Results & Data Laboratory Results . Diagnostic Findings . PG Care Time/CCT Total # of Minutes Spent Total Time Spent with Patient: Total time spent is greater than 50% in coordination of care (as documented) at patient's floor/unit and/or counseling patient: Coding Level of Care Code 16225 SUB INP/OBS CARE 2/35MIN Diagnoses Bimalleolar ankle fracture S82.843A
--- NOTE | 2024-09-26 09:34 | Cardiology Consultation ---
Date of Consultation September 26, 2024 Assessment & Plan (1) Atrial flutter: (2) HTN (hypertension): (3) Hyperlipidemia LDL goal <100: (4) Obstructive sleep apnea: Plan ASSESSMENT/PLAN: 1. Atrial flutter: Completely asymptomatic. Echo was just completed at the bedside and LV systolic function appeared normal. We discussed the diagnosis in detail. Treatment strategies also discussed. Discussed cardioversion but given that he is to undergo orthopedic surgery tomorrow, would not want to cardiovert today, which would require uninterrupted anticoagulation therapy for 4 weeks to reduce stroke risk. Given that his heart rate is well-controlled, can continue forward with surgery and when safe from a surgical standpoint, start Eliquis 5 mg twice daily. Can then be seen in the outpatient cardiology office to discuss cardioversion after 4 weeks of therapeutic anticoagulation therapy or transesophageal echo guided cardioversion if needs to be done sooner. Could also consider ablation if recurrence. Recent TSH normal. We discussed the importance of anticoagulation therapy for stroke risk reduction. Monitor CBC and renal function while on Eliquis. 2. Hypertension: Blood pressure mostly normotensive with intermittent hypertension but also has right lower extremity pain. Takes TAMANNA inhibitor in the outpatient setting and can resume when able, per hospitalist service. 3. Dyslipidemia: Continue statin therapy. 4. Sleep apnea: We discussed the importance of adequate treatment for sleep apnea. Sleep apnea can lead to atrial arrhythmias and treatment of sleep apnea may improve atrial arrhythmia burden. He would like to be referred to sleep medicine after discharge. His CPAP machine is quite old. 5. Disposition: Will arrange cardiology outpatient follow-up. No further cardiac treatment/testing necessary prior to upcoming orthopedic surgery. Plan of care communicated with primary hospitalist, Dr. Gallardo. Thank you for allowing me to participate in the care of your patient. Please call for any other questions or concerns. Sincerely, Ernesto Helton M.D. History of Present Illness Reason for Consultation: new atrial flutter Requesting Physician: Dr. Gallardo Attending Physician: Patrick Blackman MD History of Present Illness Mr. Lisa is a very pleasant 74-year-old gentleman with a history significant for hypertension, type 2 diabetes, dyslipidemia, and sleep apnea (noncompliant with CPAP). He was admitted on 09/25/2024 after a mechanical fall and right lower extremity fractures (medial malleolus, posterior malleolus, distal fibular shaft and metaphysis). On presentation, he was noted to be in atrial flutter with normal heart rate. He was completely asymptomatic in this regard. He denies palpitations, chest pain, shortness of breath, syncope, near syncope, edema, melena, hematochezia, hematuria, or other bleeding. He is very active and [place] and tolerates activity well without exertional symptoms. He does not wear a Fitbit or a smart watch. Review of systems: As above. Family history: Father with [place]. Social history: Denies smoking. Occasional alcohol. No drugs. Lives at home with his . 1 daughter who lives in [place]. 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 His was present at the bedside. Allergies Allergy/AdvReac Type Severity Reaction Status Date / Time No Known Allergies Allergy Verified 07/08/24 08:40 Home Medications Medication Instructions Recorded Confirmed Type multivitamin (Multiple Vitamins 1 tab PO QAM 02/21/19 09/25/24 History tablet) blood sugar diagnostic (LivestarTouch #50 ea 06/30/20 09/25/24 Rx Verio test strips) blood-glucose meter (OneTouch #1 ea 06/30/20 09/25/24 Rx Verio Flex Start kit) lancets 33 gauge (OneTouch Delica #100 ea 06/30/20 09/25/24 Rx Lancets) metformin 1,000 mg tablet 1,000 mg PO BID #180 tabs 02/26/24 09/25/24 Rx ramipril 5 mg capsule 5 mg PO QAM #90 caps 04/11/24 09/25/24 Rx atorvastatin 10 mg tablet 10 mg PO HS #90 tabs 05/15/24 09/25/24 Rx canagliflozin 300 mg tablet 300 mg PO DAILY 09/25/24 09/25/24 History (Invokana) Problem List DVT prophylaxis BPH (benign prostatic hyperplasia) Atrial flutter (Acute) Bimalleolar ankle fracture (Acute) Closed right ankle fracture Sinusitis Erectile dysfunction History of colon polyps Encounter for pre-operative examination Venous insufficiency of right lower extremity (Chronic) Dyspnea on exertion (Chronic) Type 2 diabetes mellitus (Chronic) HTN (hypertension) (Chronic) Hyperlipidemia LDL goal <100 (Chronic) Family history of colon cancer (Chronic) History of colon polyps (Chronic) tubular adenoma Skin cancer (Chronic) Obstructive sleep apnea (Chronic) Type 2 diabetes mellitus with albuminuria (Acute) Basal cell carcinoma of skin (Acute) Chronic prostatitis Elevated PSA, less than 10 ng/ml Nodular prostate with urinary retention Patient History Medical History Hyperlipidemia Benign localized hyperplasia of prostate with urinary obstruction Elevated prostate specific antigen (PSA) Osteoarthritis Diabetes mellitus, type 2 NIDDM Cancer SKIN CA - REMOVED Hypertension Sleep apnea CPAP - NONCOMPLIANT Surgical History History of surgery (~03/15/18) right greater saphenous radiofrequency ablation @ [facility] Dr. Baez History of varicose vein ligation and stripping History of colonoscopy H/O shoulder surgery RT History of appendectomy Family History Unknown Arteriosclerotic cardiovascular disease (ASCVD) Father Diabetes Colon cancer Hypertension Macular degeneration Coronary heart disease multiple acute MIs Mother Liver cancer Brother Hypertension Epilepsy Social History (Updated 09/25/24 @ 21:26 by William Gallarod MD) Smoking Status: Never smoker Second Hand Exposure: No; Do You Dip or Chew Tobacco: No; Hx Alcohol Use: Yes Alcohol type: beer Alcohol Intake Frequency: 2-4 x/Month Hx Substance Use: No Preferred Language: Kiswahili Communication Ability: Effective Visual Impairment: Limited Hearing Ability: Normal Media Executive Required: No Beliefs That Will Affect Care: None marital status: Current Living Situation: Spouse current occupational status: employed current occupation: [employer] part-time; 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 Alert and oriented. HEENT: Anicteric sclera. Neck: No JVD. No bruits. Normal carotid upstrokes bilaterally. Cardiac: Regular. Normal S1-S2. No murmurs, rubs, or gallops. Pulmonary: Clear to auscultation bilaterally without wheezes, rales, or rhonchi. Abdomen: Soft, nontender, nondistended, with normoactive bowel sounds. No bruits noted. Extremities: 2+ radial pulses bilaterally. 2+ left posterior tibialis pulse. Right distal lower extremity wrapped. No edema or cyanosis. Results & Data Vital Signs (Past 12 Hours) Vital Signs Temp Pulse Resp BP Pulse Ox O2 Del Method 09/26/24 08:00 36.5 C 78 16 132/63 96 Room Air 09/26/24 02:33 36.5 C 68 18 125/73 97 Room Air 09/25/24 22:59 36.7 C 68 18 131/78 99 Room Air Laboratory Results Laboratory Results - last 24 hr 09/25/24 09/25/24 09/25/24 13:25 20:20 21:02 WBC 12.47 H RBC 4.78 Hgb 15.7 Hct 45.1 MCV 94.4 MCH 32.8 MCHC 34.8 RDW Std Deviation 41.5 RDW Coeff of Claude 11.9 Plt Count 193 MPV 9.1 L Immature Gran % (Auto) 0.4 Neut % (Auto) 84.0 Lymph % (Auto) 9.7 [place] % (Auto) 5.2 Eos % (Auto) 0.6 Baso % (Auto) 0.1 Neut # (Auto) 10.47 H Lymph # (Auto) 1.21 [place] # (Auto) 0.65 H Eos # (Auto) 0.08 Baso # (Auto) 0.01 Immature Gran # (Auto) 0.05 APTT 23 PTT Ratio 0.9 Sodium 136 Potassium 4.2 Chloride 102 Carbon Dioxide 25 Anion Gap 9 BUN 27 H Creatinine 0.95 Est Cr Clr Drug Dosing 88.7 eGFR 85.04 BUN/Creatinine Ratio 28.4 H Glucose 231 H POC Glucose 167 H Estimat Average Glucose Hemoglobin A1c Calcium 9.5 Magnesium Total Bilirubin 0.8 AST 20 ALT 17 Alkaline Phosphatase 101 Total Protein 7.2 Albumin 4.4 Globulin 2.8 Albumin/Globulin Ratio 1.6 25-OH Vitamin D Total SARS-CoV-2 (PCR) NEGATIVE Influenza Type A (PCR) Negative Influenza Type B (PCR) Negative RSV (RT-PCR) Negative 09/26/24 09/26/24 06:47 07:40 WBC 8.23 RBC 4.38 L Hgb 14.1 Hct 42.3 MCV 96.6 MCH 32.2 MCHC 33.3 RDW Std Deviation 43.7 RDW Coeff of Claude 12.1 Plt Count 162 MPV 9.3 L Immature Gran % (Auto) Neut % (Auto) Lymph % (Auto) [place] % (Auto) Eos % (Auto) Baso % (Auto) Neut # (Auto) Lymph # (Auto) [place] # (Auto) Eos # (Auto) Baso # (Auto) Immature Gran # (Auto) APTT PTT Ratio Sodium 140 Potassium 4.4 Chloride 106 Carbon Dioxide 31 Anion Gap 3 BUN 26 H Creatinine 0.83 Est Cr Clr Drug Dosing 101.5 eGFR 92.99 BUN/Creatinine Ratio 31.3 H Glucose 139 H POC Glucose 126 H Estimat Average Glucose 183 Hemoglobin A1c 8.0 H Calcium 9.0 Magnesium 2.1 Total Bilirubin AST ALT Alkaline Phosphatase Total Protein Albumin Globulin Albumin/Globulin Ratio 25-OH Vitamin D Total 17.9 L SARS-CoV-2 (PCR) Influenza Type A (PCR) Influenza Type B (PCR) RSV (RT-PCR) Diagnostic Findings Labs reviewed and notable for normal blood counts, normal TSH in June, normal transaminase levels, normal magnesium, stable renal function, normal potassium, elevated A1c. Orthopedic notes reviewed. ECGs personally reviewed. ECG 09/25/2024 at 1317: Atrial flutter 97 bpm. RBBB. ECG 09/25/2024 at 1623: Atrial flutter 79 bpm. RBBB. History and physical report reviewed. Chest x-ray 09/25/2024 report reviewed: No acute process per radiology. Ankle x-ray 09/25/2024 report reviewed: Acute fractures of the medial malleolus, posterior malleolus and distal fibular shaft and metaphysis involving the right lower extremity. Telemetry personally reviewed: Atrial flutter with reasonable heart rate control. Medications Administered Current Inpatient Medications Atorvastatin Calcium (Atorvastatin 10 Mg Tab) 10 mg PO HS JOSE Stop: 10/25/24 20:59 Last Admin: 09/25/24 22:26 Dose: 10 mg Sodium Chloride (Nss) 1,000 mls @ 80 mls/hr IV .[id number] [facility] Stop: 09/26/24 10:14 Last Admin: 09/25/24 21:49 Dose: 80 mls/hr Insulin Aspart (Insulin Aspart Per Unit Charge) 0 units SC ACHS [facility] Stop: 10/25/24 20:59 Last Admin: 09/26/24 08:05 Dose: Not Given Morphine Sulfate (Morphine Sulfate 2 Mg/Ml Carp) 2 mg IV Q3H PRN PRN Reason: Pain Stop: 10/09/24 20:52 Last Admin: 09/26/24 08:06 Dose: 2 mg Multivitamins (Multivitamin Tab) 1 tab PO QAM [facility] Stop: 10/26/24 08:59 Last Admin: 09/26/24 08:05 Dose: Not Given Ondansetron HCl (Ondansetron Inj 2 Mg/Ml 2 Ml Vial) 4 mg IV Q6H PRN PRN Reason: Nausea Stop: 10/25/24 20:52 Last Admin: 09/26/24 08:06 Dose: 4 mg PG Care Time/CCT Total # of Minutes Spent Total Time Spent with Patient: Total time spent is greater than 50% in coordination of care (as documented) at patient's floor/unit and/or counseling patient: Coding Level of Care Code 72525 INT INP/OBS CARE 3/75MIN Diagnoses Atrial flutter I48.92 Essential hypertension I10 Hypertension type: essential hypertension Hyperlipidemia LDL goal <100 E78.5 Obstructive sleep apnea G47.33 (2) HTN (hypertension) Hypertension type: essential hypertension Qualified Code(s): I10 - Essential (primary) hypertension
--- NOTE | 2024-09-26 12:14 | Hospitalist Progress Note ---
Date of Service September 26, 2024 Assessment & Plan (1) Bimalleolar ankle fracture: (2) Atrial flutter: (3) Type 2 diabetes mellitus: (4) HTN (hypertension): (5) Obstructive sleep apnea: (6) Hyperlipidemia LDL goal <100: (7) BPH (benign prostatic hyperplasia): (8) DVT prophylaxis: Plan 74 year old male with history of T2DM, HTN, hyperlipidemia, BPH, and TRACI (noncompliant with CPAP) presented to the ER via EMS after falling in his yard on 09/25. Imaging on admission revealed a complex right ankle fracture involving b/l malleoli. Seen by orthopedics and right ankle placed in splint in ED. Mr. Lisa was found to be in new-onset rate-controlled atrial flutter. Due to this, surgical intervention was postponed until 09/27 to allow for cardiology workup and evaluation. #Right bimalleolar ankle fracture Orthopedic surgery consulted - plans for right ankle ORIF on 09/27 Continue with RLE splint, non-weightbearing status for now Vit D low at 17.9 - will start Cholecalciferol 25 mcg PO daily. Recommend repeating 25-OH Vit D level in 3-4 months Pain regimen: Tylenol, morphine 2 mg IV q3h PRN mod-severe pain, Dilaudid 0.5 mg q4h PRN breakthrough pain #New-onset rate-controlled A flutter No history of arrhythmias. Has been reportedly asymptomatic regarding this Continues to remain rate controlled Echocardiogram with EF 55-60%, no regional wall motion abnormalities, severe concentric left ventricular hypertrophy, mild MR Recent TSH WNL, mag WNL Cardiology consulted - start Eliquis 5 mg BID when cleared postop, follow-up outpatient for cardioversion #T2DM Home regimen includes metformin 1000 mg BID, Invokana 300 mg daily, ramipril 5 mg daily A1c elevated at 8.0% - recommend adjustment to regimen in outpatient setting SSI while hospitalized #HTN Hold ramipril 5 mg in setting of upcoming surgery. Resume postop if kidney function remains stable If other BP control is needed consider amlodipine or even alpha snehal given h/o BPH #TRACI Although he was diagnosed with TRACI in the past and prescribed CPAP he has not used the machine in several years Refer to sleep medicine on discharge Counselled on importance of sleep apnea treatment regarding arrhythmias #Recent URI CXR unremarkable. COVID/flu/RSV checked and negative. Stable on room air #Hyperlipidemia - continue atorvastatin 10 mg HS #DVT proph SCD on LLE - Defer on chemical means for now given upcoming surgery Plan to start Eliquis postoperatively when cleared by surgery Dispo: Right ankle ORIF scheduled for 09/27, then will need PT/OT to evaluate to further assess dispo Updated at bedside Ordered Dilaudid IV for breakthrough pain Discussed case with cardiology Started vitamin D supplementation Admission and Anticipated Discharge Date Admission Date: September 25, 2024 Subjective Patient seen and evaluated at bedside with his present. He reports feeling well overall and states his pain is well-controlled currently with medication. He notes that he does have some breakthrough pain between his doses of morphine. We discussed adding an additional pain medication for breakthrough pain. He denies any heart palpitations, chest pain, dizziness, shortness of breath, increased fatigue, presyncope. We discussed the current plan of surgery with the orthopedic team tomorrow and further recommendations to come from cardiology. He denies any additional complaints or concerns at this time. Physical Exam Physical Exam: General: No acute distress, nondiaphoretic, well-developed, well-nourished. Cardiac: Atrial flutter, rates in 70s. No murmur appreciated. Well-perfused. Pulm: Clear to auscultation bilaterally without wheezes, rales or rhonchi. Normal respiratory effort. 97% on room air. Abdominal: Soft, nontender, nondistended. Bowel sounds present. Neuro: A&O x3. No focal neurological deficits. MSK/Extremities: RLE in split. Wiggles toes without difficulty. Cap refill <3 seconds. Results & Data Results & Data Vital Signs (Past 12 Hours) Vital Signs Temp Pulse Resp BP Pulse Ox O2 Del Method 09/26/24 11:17 98.1 F 81 18 142/87 H 97 Room Air 09/26/24 08:00 97.7 F 78 16 132/63 96 Room Air 09/26/24 02:33 97.7 F 68 18 125/73 97 Room Air Laboratory Results Reviewed CBC with differential Reviewed CMP, chemistries Diagnostic Findings Reviewed ankle x-rays Reviewed CXR Reviewed echocardiogram PG Care Time/CCT Total # of Minutes Spent Total Time Spent with Patient: Total time spent is greater than 50% in coordination of care (as documented) at patient's floor/unit and/or counseling patient: Coding Level of Care Code 71942 SUB INP/OBS CARE 50MIN Diagnoses Bimalleolar ankle fracture S82.843A Atrial flutter I48.92 Type 2 diabetes mellitus without complication, without long-term current use of insulin E11.9 Diabetes mellitus complication status: without complication Diabetes mellitus half-way insulin use: without extermination inspector use Essential hypertension I10 Hypertension type: essential hypertension Obstructive sleep apnea G47.33 Hyperlipidemia LDL goal <100 E78.5 BPH (benign prostatic hyperplasia) N40.0 DVT prophylaxis Z29.9 (3) Type 2 diabetes mellitus Diabetes mellitus complication status: without complication Diabetes mellitus extermination inspector insulin use: without half-way use Qualified Code(s): E11.9 - Type 2 diabetes mellitus without complications (4) HTN (hypertension) Hypertension type: essential hypertension Qualified Code(s): I10 - Essential (primary) hypertension
--- NOTE | 2024-09-26 17:17 | XCELERA ---
[id number]
[2024-09-26] MEDS: ACETAMINOPHEN 325 MG TAB PO PRN (17:26)
--- NOTE | 2024-09-26 20:31 | Electrocardiogram Report ---
Test Reason : Blood Pressure : */* mmHG Vent. Rate : 79 BPM Atrial Rate : 271 BPM P-R Int : * ms QRS Dur : 156 ms QT Int : 408 ms P-R-T Axes : 264 98 -30 degrees QTcB Int : 467 ms Atrial flutter with variable A-V block Right bundle branch block Abnormal ECG When compared with ECG of 25-Sep-2024 13:17, No significant change Confirmed by Vivek Helton ([id number]) on 09/26/2024 8:31:18 PM Referred By: REFERRED SELF Confirmed By: Vivek Helton
[2024-09-27] MEDS ORDERED: BUPIVACAINE 0.25% PF 30 ML VIAL ONE (07:08)
[2024-09-27] MEDS ORDERED: DEXAMETHASONE SOD INJ 4 MG/ML VIAL ONE ×2 (07:08→12:04)
[2024-09-27] MEDS ORDERED: EPINEPHrine INJ 1 MG/ML AMP ONE (07:08)
--- NOTE | 2024-09-27 08:00 | Orthopedic Progress Note ---
Date of Service September 27, 2024 Assessment & Plan (1) Bimalleolar ankle fracture: He is npo. Plan is for ORIF today with Dr. Powers. Cardiology is recommending starting eliquis 5mg bid post operatively. Continue NWB RLE, ice, elevate today. Subjective . 74 year old patient with right ankle fx, and atrial flutter. Having ankle pain. No new complaints overnight. NPO Review of Systems All systems reviewed & are unremarkable except as noted in HPI & below. Physical Exam .alert and oriented. NAD. VSS Right leg: splint intact. Good alignment of his ankle/foot. Able to move toes. Sensation intact to touch. Results & Data Results & Data Laboratory Results . Diagnostic Findings . PG Care Time/CCT Total # of Minutes Spent Total Time Spent with Patient: Total time spent is greater than 50% in coordination of care (as documented) at patient's floor/unit and/or counseling patient: Coding Level of Care Code 68195 SUB INP/OBS CARE 2/35MIN Diagnoses Bimalleolar ankle fracture S82.843A
[2024-09-27 08:21] LABS: Hematocrit (blood only) 40.9 % (42.0-52.0); Hemoglobin 14.4 g/dl (14.0-18.0); Mean Corpuscular Hemoglobin 33.4 pg (25.0-34.0); Mean Corpuscular Hgb Conc 35.2 g/dL (32.0-36.0); Mean Corpuscular Volume 94.9 fL (80.0-100.0); Mean Platelet Volume 9.1 fL (9.4-12.4); Platelet Count 182 K/uL (130-400); RDW Coefficient of Variation 11.9 % (11.5-14.5); RDW Standard Deviation 41.8 fL (36.4-46.3); Red Blood Count 4.31 M/uL (4.70-6.10); White Blood Count 8.56 K/ul (4.8-10.8)
[2024-09-27 08:37] LABS: BUN Creatinine Ratio 23.1 (10-20); Calcium 9.1 mg/dl (8.6-10.3); Potassium 4.5 mmol/L (3.5-5.1)
[2024-09-27] MEDS: HYDROmorphone INJ 0.5 MG/0.5 ML SYR IV PRN (08:48)
[2024-09-27] MEDS: CHOLECALCIFEROL 25 MCG (1000 UNITS) TAB PO SCH (08:49)
--- NOTE | 2024-09-27 09:46 | Cardiology Progress Note ---
Date of Service September 27, 2024 Assessment & Plan (1) Atrial flutter: (2) HTN (hypertension): (3) Hyperlipidemia LDL goal <100: (4) Obstructive sleep apnea: Plan ASSESSMENT/PLAN: 1. Atrial flutter: Completely asymptomatic. Given that his heart rate is well-controlled (without rate controlling meds), can continue forward with surgery and when safe from a surgical standpoint, start Eliquis 5 mg twice daily. Can then be seen in the outpatient cardiology office to discuss cardioversion after 4 weeks of therapeutic anticoagulation therapy or transesophageal echo guided cardioversion if needs to be done sooner. Could also consider ablation if recurrence. Recent TSH normal. Anticoagulation therapy for stroke risk reduction when able. Monitor CBC and renal function while on Eliquis. If he becomes more tachycardic with surgery or postop, recommend oral metoprolol. 2. Hypertension: Blood pressure mostly normotensive. Takes TAMANNA inhibitor in the outpatient setting and can resume when able, per hospitalist service. 3. Dyslipidemia: Continue statin therapy. 4. Sleep apnea: We discussed the importance of adequate treatment for sleep apnea at the time of initial consultation. Sleep apnea can lead to atrial arrhythmias and treatment of sleep apnea may improve atrial arrhythmia burden. He would like to be referred to sleep medicine after discharge. His CPAP machine is quite old. 5. Disposition: These call with any further questions or concerns. Cardiology will sign off at this time. Dr. Tsai will be on-call starting today at noon and throughout the weekend. Patient care communicated with Dr. Blackman of the primary hospitalist service. My office will schedule hospital follow-up in the cardiology outpatient setting. Admission and Anticipated Discharge Date Admission Date: September 25, 2024 Subjective Patient seen earlier this morning. He denies chest pain, shortness of breath, syncope, near syncope, palpitations, or edema. He is awaiting surgical correction for his right lower extremity fracture. He was unaccompanied. Physical Exam Physical Exam: Gen.: No acute distress. Alert and oriented. HEENT: Anicteric sclera. Neck: No JVD. Cardiac: Irregular. Normal S1-S2. No murmurs, rubs, or gallops. Pulmonary: Clear to auscultation bilaterally without wheezes, rales, or rhonchi. Abdomen: Soft, nontender, nondistended, with normoactive bowel sounds. No bruits noted. Extremities: 2+ radial pulses bilaterally. 2+ left posterior tibialis pulse. Right distal lower extremity wrapped. No edema or cyanosis. Results & Data Vital Signs (Past 12 Hours) Vital Signs Temp Pulse Resp BP Pulse Ox O2 Del Method 09/27/24 07:50 36.5 C 74 20 118/63 97 Room Air 09/27/24 03:13 36.5 C 80 18 123/75 96 Room Air 09/26/24 22:51 36.6 C 72 18 137/76 96 Room Air Laboratory Results Laboratory Results - last 24 hr 09/26/24 09/26/24 09/26/24 11:43 16:02 20:10 WBC RBC Hgb Hct MCV MCH MCHC RDW Std Deviation RDW Coeff of Claude Plt Count MPV Sodium Potassium Chloride Carbon Dioxide Anion Gap BUN Creatinine Est Cr Clr Drug Dosing eGFR BUN/Creatinine Ratio Glucose POC Glucose 132 H 107 H 238 H Calcium 09/27/24 09/27/24 07:29 07:38 WBC 8.56 RBC 4.31 L Hgb 14.4 Hct 40.9 L MCV 94.9 MCH 33.4 MCHC 35.2 RDW Std Deviation 41.8 RDW Coeff of Claude 11.9 Plt Count 182 MPV 9.1 L Sodium 140 Potassium 4.5 Chloride 106 Carbon Dioxide 30 Anion Gap 4 BUN 18 Creatinine 0.78 Est Cr Clr Drug Dosing 108.0 eGFR 94.75 BUN/Creatinine Ratio 23.1 H Glucose 125 H POC Glucose 205 H Calcium 9.1 Diagnostic Findings Labs reviewed and notable for normal potassium, normal renal function, normal blood counts. Telemetry personally reviewed: Atrial flutter with normal heart rates. Medications Administered Current Inpatient Medications Acetaminophen (Acetaminophen 325 Mg Tab) 650 mg PO Q4H PRN PRN Reason: Pain or Fever Stop: 10/26/24 12:06 Last Admin: 09/26/24 17:26 Dose: 650 mg Atorvastatin Calcium (Atorvastatin 10 Mg Tab) 10 mg PO HS JOSE Stop: 10/25/24 20:59 Last Admin: 09/26/24 19:57 Dose: 10 mg Hydromorphone HCl (Hydromorphone Inj 0.5 Mg/0.5 Ml Syr) 0.5 mg IV Q4H PRN PRN Reason: Breakthrough Pain Stop: 10/10/24 12:05 Last Admin: 09/27/24 08:48 Dose: 0.5 mg Insulin Aspart (Insulin Aspart Per Unit Charge) 0 units SC ACHS [facility] Stop: 10/25/24 20:59 Last Admin: 09/27/24 08:49 Dose: Not Given Morphine Sulfate (Morphine Sulfate 2 Mg/Ml Carp) 2 mg IV Q3H PRN PRN Reason: Pain Stop: 10/09/24 20:52 Last Admin: 09/27/24 05:46 Dose: 2 mg Multivitamins (Multivitamin Tab) 1 tab PO QAM [facility] Stop: 10/26/24 08:59 Last Admin: 09/27/24 08:49 Dose: Not Given Ondansetron HCl (Ondansetron Inj 2 Mg/Ml 2 Ml Vial) 4 mg IV Q6H PRN PRN Reason: Nausea Stop: 10/25/24 20:52 Last Admin: 09/26/24 08:06 Dose: 4 mg Vitamin D (Cholecalciferol 25 Mcg (1000 Units) Tab) 25 mcg PO QAM [facility] Stop: 10/27/24 08:59 Last Admin: 09/27/24 08:49 Dose: Not Given PG Care Time/CCT Total # of Minutes Spent Total Time Spent with Patient: Total time spent is greater than 50% in coordination of care (as documented) at patient's floor/unit and/or counseling patient: Coding Level of Care Code 03664 SUB INP/OBS CARE 3/50MIN Diagnoses Atrial flutter I48.92 Essential hypertension I10 Hypertension type: essential hypertension Hyperlipidemia LDL goal <100 E78.5 Obstructive sleep apnea G47.33 (2) HTN (hypertension) Hypertension type: essential hypertension Qualified Code(s): I10 - Essential (primary) hypertension
--- NOTE | 2024-09-27 10:49 | Hospitalist Progress Note ---
Date of Service September 27, 2024 Assessment & Plan (1) Bimalleolar ankle fracture: (2) Atrial flutter: (3) Type 2 diabetes mellitus: (4) HTN (hypertension): (5) Obstructive sleep apnea: (6) Hyperlipidemia LDL goal <100: (7) BPH (benign prostatic hyperplasia): (8) DVT prophylaxis: Plan 74 year old male with history of T2DM, HTN, hyperlipidemia, BPH, and TRACI (noncompliant with CPAP) presented to the ER via EMS after falling in his yard on 09/25. Imaging on admission revealed a complex right ankle fracture involving b/l malleoli. Seen by orthopedics and right ankle placed in splint in ED. Mr. Lisa was found to be in new-onset rate-controlled atrial flutter. Due to this, surgical intervention was postponed until 09/27 to allow for cardiology workup and evaluation. #Right bimalleolar ankle fracture Orthopedic surgery consulted - right ankle ORIF 09/27 Continue with RLE splint, non-weightbearing status for now Vit D low at 17.9 - started/continued on Cholecalciferol 25 mcg PO daily. Recommend repeating 25-OH Vit D level in 3-4 months Pain regimen: Tylenol, morphine 2 mg IV q3h PRN mod-severe pain, Dilaudid 0.5 mg q4h PRN breakthrough pain #New-onset rate-controlled A flutter No history of arrhythmias. Has been reportedly asymptomatic regarding this. Recent TSH WNL, mag WNL Echocardiogram with EF 55-60%, no regional wall motion abnormalities, severe concentric left ventricular hypertrophy, mild MR Continues to remain rate controlled. If tachycardic postop, can add oral metoprolol Cardiology consulted - start Eliquis 5 mg BID when cleared postop, follow-up outpatient for cardioversion #T2DM Home regimen includes metformin 1000 mg BID, Invokana 300 mg daily, ramipril 5 mg daily A1c elevated at 8.0% - recommend adjustment to regimen in outpatient setting SSI while hospitalized #HTN Hold ramipril 5 mg in setting of upcoming surgery. Resume postop if kidney function remains stable If other BP control is needed consider amlodipine or even alpha snehal given h/o BPH #TRACI Although he was diagnosed with TRACI in the past and prescribed CPAP he has not used the machine in several years Refer to sleep medicine on discharge Counselled on importance of sleep apnea treatment regarding arrhythmias #Recent URI CXR unremarkable. COVID/flu/RSV checked and negative. Stable on room air #Hyperlipidemia - continue atorvastatin 10 mg HS #DVT proph SCD on LLE - Defer on chemical means for now given upcoming surgery Plan to start Eliquis postoperatively when cleared by surgery Dispo: ORIF 09/27, will need PT/OT postop to evaluate to further assess dispo Updated at bedside Discussed case with cardiology Admission and Anticipated Discharge Date Admission Date: September 25, 2024 Subjective Patient seen and evaluated at bedside with his present. He reports much better pain control since the Dilaudid was added for breakthrough pain yesterday. He is scheduled for surgery with ortho today. We reviewed his telemetry monitoring overnight and today, and further discussed the plan related to his A flutter. All questions answered. No additional complaints or concerns at this time. Physical Exam Physical Exam: General: No acute distress, nondiaphoretic, well-developed, well-nourished. Cardiac: Atrial flutter, rates in 80s. No murmur appreciated. Well-perfused. Pulm: Clear to auscultation bilaterally without wheezes, rales or rhonchi. Normal respiratory effort. 97% on room air. Abdominal: Soft, nontender, nondistended. Bowel sounds present. Neuro: A&O x3. No focal neurological deficits. MSK/Extremities: RLE in split. Wiggles toes without difficulty. Cap refill <2 seconds. Results & Data Results & Data Vital Signs (Past 12 Hours) Vital Signs Temp Pulse Resp BP Pulse Ox O2 Del Method 09/27/24 07:50 97.7 F 74 20 118/63 97 Room Air 09/27/24 03:13 97.7 F 80 18 123/75 96 Room Air 09/26/24 22:51 97.9 F 72 18 137/76 96 Room Air Laboratory Results Reviewed CBC Reviewed BMP Diagnostic Findings Reviewed telemetry - A flutter in 70-90s PG Care Time/CCT Total # of Minutes Spent Total Time Spent with Patient: Total time spent is greater than 50% in coordination of care (as documented) at patient's floor/unit and/or counseling patient: Coding Level of Care Code 38265 SUB INP/OBS CARE 3/50MIN Diagnoses Bimalleolar ankle fracture S82.843A Atrial flutter I48.92 Type 2 diabetes mellitus without complication, without long-term current use of insulin E11.9 Diabetes mellitus complication status: without complication Diabetes mellitus intermediate insulin use: without bench examiner use Essential hypertension I10 Hypertension type: essential hypertension Obstructive sleep apnea G47.33 Hyperlipidemia LDL goal <100 E78.5 BPH (benign prostatic hyperplasia) N40.0 DVT prophylaxis Z29.9 (3) Type 2 diabetes mellitus Diabetes mellitus complication status: without complication Diabetes mellitus bench examiner insulin use: without bench examiner use Qualified Code(s): E11.9 - Type 2 diabetes mellitus without complications (4) HTN (hypertension) Hypertension type: essential hypertension Qualified Code(s): I10 - Essential (primary) hypertension
[2024-09-27] MEDS ORDERED: ONDANSETRON INJ 2 MG/ML 2 ML VIAL ONE (12:04)
[2024-09-27] MEDS ORDERED: LIDOCAINE 2% 2 ML VIAL/AMP(20MG/ML) INFIL ONE (12:04)
[2024-09-27] MEDS ORDERED: PROPOFOL IV EMULSION 10 MG/ML 20 ML VIAL IV ONE (12:04)
[2024-09-27] MEDS ORDERED: fentaNYL citrate PF 100 MCG/2 ML VIAL ONE ×2 (12:05→13:57)
[2024-09-27] MEDS ORDERED: MIDAZOLAM HCL 1 MG/ML 2ML VIAL ONE (12:05)
[2024-09-27] MEDS: LACTATED RINGER'S 1,000 ML IV SCH (12:20)
[2024-09-27] MEDS ORDERED: fentaNYL citrate PF 100 MCG/2 ML VIAL IV PRN (12:35)
[2024-09-27] MEDS ORDERED: PROMETHAZINE HCL 6.25 MG in SODIUM CHLORIDE 0.9% 50 ML IV PRN (12:35)
[2024-09-27] MEDS ORDERED: ONDANSETRON INJ 2 MG/ML 2 ML VIAL IV PRN ×2 (12:35→16:59)
[2024-09-27] MEDS ORDERED: ePHEDrine sulfate 50 MG/ML AMP IV PRN (12:35)
[2024-09-27] MEDS ORDERED: ATROPINE SULFATE 0.1 MG/ML 10ML SYR IV PRN (12:35)
--- NOTE | 2024-09-27 12:37 | Anesthesiology Consultation ---
Date of Service September 27, 2024 Assessment & Plan Chart Review Chart Review: Acceptable Risk for Surgery and Patient NOT seen in Pre Admission Testing Consults Requested none ASA ASA3 Proposed Anesthesia Anesthesia Type: General Regional Regional Laterality: Right Site: Popliteal and Adductor Canal Risk / Benefits Reviewed With: PT / POA / Parent / Guardian, Accepts Plan and Informed Consent Obtained History Surgery Operation Date: 09/27/24 14:00 Proposed Procedures p Right Ankle Open Reduction Internal Fixation - Harry Powers MD Height/Weight Height: 6 ft Weight: 106.6 kg Allergies Allergy/AdvReac Type Severity Reaction Status Date / Time No Known Allergies Allergy Verified 07/08/24 08:40 Medications Home Medications Medication Instructions Recorded Confirmed Last Taken multivitamin (Multiple Vitamins 1 tab PO QAM 02/21/19 09/25/24 09/25/24 tablet) blood sugar diagnostic (OneTouch #50 ea 06/30/20 09/25/24 Unknown Verio test strips) blood-glucose meter (OneTouch #1 ea 06/30/20 09/25/24 Unknown Verio Flex Start kit) lancets 33 gauge (OneTouch Delica #100 ea 06/30/20 09/25/24 Unknown Lancets) metformin 1,000 mg tablet 1,000 mg PO BID #180 tabs 02/26/24 09/25/24 09/25/24 ramipril 5 mg capsule 5 mg PO QAM #90 caps 04/11/24 09/25/24 09/25/24 atorvastatin 10 mg tablet 10 mg PO HS #90 tabs 05/15/24 09/25/24 09/24/24 canagliflozin 300 mg tablet 300 mg PO DAILY 09/25/24 09/25/24 09/25/24 (Invokana) Active Medications Generic Name Dose Route Start Last Admin Trade Name Freq PRN Reason Stop Dose Admin Acetaminophen 650 mg 09/26/24 12:07 09/26/24 17:26 Acetaminophen 325 Mg Tab PO 10/26/24 12:06 650 mg Q4H PRN Administration Pain or Fever Atorvastatin Calcium 10 mg 09/25/24 21:00 09/26/24 19:57 Atorvastatin 10 Mg Tab PO 10/25/24 20:59 10 mg HS JOSE Administration Hydromorphone HCl 0.5 mg 09/26/24 12:06 09/27/24 08:48 Hydromorphone Inj 0.5 Mg/0.5 Ml Syr IV 10/10/24 12:05 0.5 mg Q4H PRN Administration Breakthrough Pain Lactated Ringer's 1,000 mls @ 15 mls/hr 09/27/24 12:30 09/27/24 12:20 Lr IV 09/28/24 12:29 15 mls/hr .Q24H JOSE Administration Insulin Aspart 0 units 09/25/24 21:00 09/27/24 11:56 Insulin Aspart Per Unit Charge SC 10/25/24 20:59 5 units ACHS JOSE Administration Morphine Sulfate 2 mg 09/25/24 20:53 09/27/24 05:46 Morphine Sulfate 2 Mg/Ml Carp IV 10/09/24 20:52 2 mg Q3H PRN Administration Pain Multivitamins 1 tab 09/26/24 09:00 09/27/24 08:49 Multivitamin Tab PO 10/26/24 08:59 Not Given QAM JOSE Ondansetron HCl 4 mg 09/25/24 20:53 09/26/24 08:06 Ondansetron Inj 2 Mg/Ml 2 Ml Vial IV 10/25/24 20:52 4 mg Q6H PRN Administration Nausea Vitamin D 25 mcg 09/27/24 09:00 09/27/24 08:49 Cholecalciferol 25 Mcg (1000 Units) Tab PO 10/27/24 08:59 Not Given QAM JOSE NPO Date Last Intake of Fluids: 09/26/24 Time Last Intake of Fluids: 21:00 Date Last Intake of Solids: 09/26/24 Time Last Intake of Solids: 18:30 Past Medical History Medical History Hyperlipidemia Benign localized hyperplasia of prostate with urinary obstruction Elevated prostate specific antigen (PSA) Osteoarthritis Diabetes mellitus, type 2 NIDDM Cancer SKIN CA - REMOVED Hypertension Sleep apnea CPAP - NONCOMPLIANT Exercise / Class Metabolic Activity II 4-5 Yardwork/Stairs/Walk up hill Past Family History Family History Unknown Arteriosclerotic cardiovascular disease (ASCVD) Father Diabetes Colon cancer Hypertension Macular degeneration Coronary heart disease multiple acute MIs Mother Liver cancer Brother Hypertension Epilepsy Past Surgical History Surgical History History of surgery (~03/15/18) right greater saphenous radiofrequency ablation @ [facility] Dr[facility] Baez History of varicose vein ligation and stripping History of colonoscopy H/O shoulder surgery RT History of appendectomy Past Anesthesia History No Hx of Anesthesia Complications and No Family Hx of Anesthesia Complications History of PONV No Hx of PONV and No Hx of Motion Sickness Social History Smoking Status: Never smoker Do You Dip or Chew Tobacco: No Hx Alcohol Use: Yes Alcohol type: beer alcohol intake frequency: a few times a month Hx Substance Use: No substance use type: does not use Physical Exam Vital Signs Last Vital Signs Temp 36.8 C 09/27/24 12:10 Pulse 92 H 09/27/24 12:10 Resp 20 09/27/24 12:10 BP 158/92 H 09/27/24 12:10 Pulse Ox 97 09/27/24 12:10 O2 Del Method Room Air 09/27/24 12:10 ENMT Mouth: no dentition abnormality Thyromental Distance: > or= 3.5 Finger Breadths Mallampati Class: II Neck normal visual inspection Respiratory normal respiratory effort Auscultation: lungs clear to auscultation bilaterally Cardiovascular Rate/Rhythm: regular rate and regular rhythm Psychiatric Orientation: alert Testing Laboratory Results 09/27/24 07:38 09/27/24 07:38 APTT 23 Seconds (21-31) 09/25/24 13:25 Hemoglobin A1c 8.0 % (4.5-5.6) H 09/26/24 06:47 09/27/24 09/27/24 09/27/24 12:18 11:52 11:50 POC Glucose 135 H 347 H* 419 H* 09/27/24 07:29 POC Glucose 205 H
--- NOTE | 2024-09-27 12:42 | History & Physical Bridge Note ---
Date of Service September 27, 2024 History & Physical Bridge Note I have examined the patient, reviewed the History & Physical and in the interval since the performance of the History & Physical I have noted the following changes of clinical significance: no changes noted
[2024-09-27] MEDS: ceFAZolin 2000MG 2,000 MG/15 ML SYR IV ONE (12:55)
[2024-09-27] MEDS ORDERED: PHENYLEPHRINE 100MCG/ML 5ML SYR ONE (13:26)
[2024-09-27] MEDS: ceFAZolin 2,000 MG/15 ML IV PUSH IV ONE (13:36)
[2024-09-27] MEDS ORDERED: PHENYLEPHRINE HCL 10 MG/ML VIAL ONE (14:03)
[2024-09-27] MEDS: BUPIVACAINE/EPINEPHRINE 0.5% MPF 1:200,000 30 ML VIAL ONE (14:19)
--- NOTE | 2024-09-27 14:50 | Fluoroscopy Report ---
FL ankle RT min 3V RTN CLINICAL HISTORY: ORIF of right ankle COMPARISON STUDY: 09/25/2024 FLUOROSCOPY TIME: 13 seconds FLUOROSCOPY IMAGES: 4 EXPOSURE DOSE: 0.2 mGy FINDINGS: Fluoroscopy was provided for internal fixation of the right ankle. IMPRESSION: Intraoperative fluoroscopy. ACT 112: Negative or not required by law. Electronically signed by: Allen Martinez M.D. 09/27/2024 2:48 PM
--- NOTE | 2024-09-27 15:33 | Operative Report ---
[facility] Post Operative Report Pre & Post Diagnosis Operation Date: 09/27/24 14:00 Pre-Op diagnosis: Right trimalleolar ankle fracture Postop diagnosis: Right trimalar ankle fracture I identified the patient and participated in the time-out.: Yes Procedure Operation Date: 09/27/24 14:00 Open reduction internal fixation of right trimalar ankle fracture. Surgeon Harry Powers MD Automation Technologist None Estimated Blood Loss 50 Findings Consistent with Post-Op Diagnosis Specimens None Anesthesia Type General Regional Complications none Disposition Accompanied Patient To Recovery: No Indications The patient is a 74-year-old gentleman with multiple medical comorbidities who sustained an injury to his right ankle 2 days ago. He was out working in the yard when he slipped in the mud. Acute onset of pain discomfort and deformity to his ankle. He was brought to emergency room and underwent closed reduction. He was then admitted by the hospitalist service for fixation. He had a Tritamyl ankle fracture with subluxation. Upon admission he was known to have new onset atrial flutter. He was admitted and worked up cardiac garsia. He is now been indicated for surgical treatment of his ankle. Description of Procedure Operative implants consists of: Medial side implants consist of: 1. Synthes 4.0 partially-threaded/long threaded cannulated screw x 2 with 2 washers. Lateral side implants consisted of: 1. Synthes one third semitubular locking plate 10 hole. 2. 3.5 fully threaded cortical interfragmentary screw x 1. 3. 3.5 fully threaded cortical locking screw x 1. 4. 4.0 fully threaded cancellous screw x 1. 5. 3.5 fully threaded cortical screws x 6. The patient was taken the op room, identified, placed on the operating table in the supine position. All contact areas were appropriately padded. A popliteal block had been provided in the holding area. A general anesthetic was implemented. A right thigh insert was then placed. The right lower extremity splint was then removed. I scrubbed his the foot and leg with Hibiclens and then prepped it with ChloraPrep and draped in usual sterile fashion. The right leg was elevated and exsanguinated with use of an Esmarch and a tourniquet was placed at 300 mmHg. Attention was was first drawn to the medial malleolus. A curvilinear incision was made over the anterior medial aspect of the distal tibia. I tried to avoid the area where his skin was most tenuous posteriorly. Full-thickness flap was elevated directly down to bone. There was some slight comminution of the fragment distally. I irrigated the fracture out, held it with the reduction clamp anatomically and then placed 2 wires from the 4 OKmeter screws across the fracture site. The position was verified fluoroscopically. I then placed 2 partially-threaded/long threaded cancellous cannulated screws over the guidewires each with a washer. This provided excellent medial fixation. Attention drawn laterally. A direct lateral approach to the fibula was then performed through a longitudinal incision. Sharp dissection carried through the subcutaneous tissue directly down the fracture. The fracture was exposed. I then washed it out. I then reduced this noted with 2 reduction clamps and a K wire. I placed a single lag screw from anterior to posterior. I then contoured a 10 hole one third semitubular plate to the lateral aspect of the fibula. It was fixed distally with a single cortical screw and then proximally with 4 cortical screws. I then placed an additional cancellous screw distally and a locking screw distally. I then placed 1 additional 3.5 cortical screw in the mid aspect of the plate. X- rays brought in. The fracture was anatomically aligned. I stressed the mortise and there was no gapping of the clear space. Attention turned toward closing. All wounds were irrigated extensively. I did inject locally with 30 cc of half percent Marcaine with epinephrine. The tourniquet was then let down for tourniquet time 60 minutes. Hemostasis surges electrocautery. Both wounds were irrigated. The lateral wound was closed in 3 layers with the deep layer with 0 Vicryl suture in a [id number] fashion. Subcutaneous tissues with 2-0 Dexon suture in buried erupted fashion skin with 3-0 nylon sutures. The medial wound was a bit more difficult as he is saphenous vein was quite calcified and tended to leak. Spent quite a bit of time cauterizing coagulating this. We eventually got the bleeding stopped. I irrigated the wound extensively. The deep tissues were then closed with 2-0 Vicryl suture in the subcutaneous tissues with some 2- 0 Vicryl suture. The skin was closed with 3-0 nylon and 2-0 nylon suture in a simple fashion. The foot and leg were then cleaned and dried. A sterile dressing with Xeroform, 4 fours, sterile cast padding and a well-padded posterior and stirrup splint were applied. Patient then brought out of general esthesia and transferred to the recovery in stable condition. The patient tolerated procedure well and there were no complications. I attest to the content of the Intraoperative Record and any orders documented therein. Any exceptions are noted below.
--- NOTE | 2024-09-27 16:41 | Anesthesiology Progress Note ---
Date of Service September 27, 2024 Anesthesia Post Procedure Vital Signs Vital Signs: Temp Pulse Pulse Resp BP Pulse Ox O2 Del Method 09/27/24 16:10 92 H 19 144/93 H 94 Room Air 09/27/24 16:00 36.6 C 88 15 127/94 91 Room Air 09/27/24 15:50 87 15 151/92 H 93 Room Air 09/27/24 15:40 88 15 161/90 H 93 Room Air 09/27/24 15:29 36.0 C L 91 H 17 144/87 H 98 Oxymask 09/27/24 12:10 36.8 C 92 H 20 158/92 H 97 Room Air 09/27/24 11:30 36.5 C 85 18 121/74 98 Room Air 09/27/24 07:50 36.5 C 74 20 118/63 97 Room Air 09/27/24 03:13 36.5 C 80 18 123/75 96 Room Air 09/26/24 22:51 36.6 C 72 18 137/76 96 Room Air 09/26/24 21:39 61 09/26/24 19:28 36.6 C 89 18 130/83 96 Room Air O2 Flow Rate 09/27/24 16:10 09/27/24 16:00 09/27/24 15:50 09/27/24 15:40 09/27/24 15:29 6 09/27/24 12:10 09/27/24 11:30 09/27/24 07:50 09/27/24 03:13 09/26/24 22:51 09/26/24 21:39 09/26/24 19:28 Pain Intensity Right Ankle: Pain Intensity: 4 Transfer of Care Handoff Completed per policy Notes Mental Status: alert / awake / arousable Patient Amnestic to Procedure: Yes Nausea / Vomiting: adequately controlled Pain: adequately controlled Airway Patency, RR, SpO2: stable & adequate BP & HR: stable & adequate Hydration State: stable & adequate Anesthetic Complications: no major complications apparent
[2024-09-27] MEDS ORDERED: PHARMACY GLYCEMIC MGMT CONSULT PRN ×2 (16:59)
[2024-09-27] MEDS ORDERED: CARBOHYDRATES FOR HYPOGLYCEMIA PO PRN (16:59)
[2024-09-27] MEDS ORDERED: GLUCAGON FOR INJ 1 MG VIAL SQ PRN (16:59)
[2024-09-27] MEDS ORDERED: DEXTROSE 50% 50 ML SYRINGE IV PRN (16:59)
[2024-09-27] MEDS ORDERED: METOCLOPRAMIDE HCL INJ 5 MG/ML 2 ML VIAL IV PRN (16:59)
[2024-09-27] MEDS ORDERED: bisacodyL 10 MG SUPP PR PRN (16:59)
[2024-09-27] MEDS ORDERED: NALOXONE HCL 0.4 MG/1 ML VIAL/CARP IV PRN (16:59)
[2024-09-27] MEDS ORDERED: ALUMINUM/MAGNESIUM SUSP 30 ML UDC PO PRN (16:59)
[2024-09-27] MEDS ORDERED: MAGNESIUM HYDROXIDE SUSP 30 ML UDC PO PRN (16:59)
[2024-09-27] MEDS ORDERED: HYDROmorphone INJ 0.5 MG/0.5 ML SYR IV PRN (16:59)
[2024-09-27] MEDS ORDERED: GLUCOSE 40% GEL 15 GM TUBE PO PRN (16:59)
[2024-09-27] MEDS ORDERED: GLUCOSE 10 TAB/TUBE PO PRN (16:59)
[2024-09-27] MEDS: BACITRACIN OINT 14 GM TUBE ONE (17:07)
[2024-09-27] MEDS: KETOROLAC TROMETHAMINE 15 MG/ML VIAL IV SCH (17:26)
[2024-09-27] MEDS: ASCORBIC ACID 500 MG TAB PO SCH (18:05)
[2024-09-27] MEDS: ACETAMINOPHEN 500 MG TAB PO SCH (21:08)
[2024-09-27] MEDS: SENNA 8.6 MG TAB PO SCH (21:08)
[2024-09-27] MEDS: DOCUSATE SODIUM 100 MG CAP PO SCH (21:08)
[2024-09-27] MEDS: INSULIN ASPART PER UNIT CHARGE SC SCH (21:09)
[2024-09-27] MEDS: ceFAZolin 2000MG 2,000 MG/15 ML SYR IV SCH (21:09)
[2024-09-27] MEDS: TRANEXAMIC ACID / 0.7% NACL 1,000 MG/100 ML BAG IV ONE (21:09)
[2024-09-28] MEDS: LANTUS PER UNIT CHARGE SC ONE (03:21)
[2024-09-28] MEDS: INSULIN ASPART PER UNIT CHARGE SC ONE (03:21)
--- NOTE | 2024-09-28 07:37 | Orthopedic Progress Note ---
Date of Service September 28, 2024 Assessment & Plan (1) Bimalleolar ankle fracture: Plan: 74-year-old gentleman with underlying diabetes with new onset atrial flutter postop day 1 from a right trimalar ankle fracture ORIF. Orthopedically is doing well. Block is still in effect. He is completely asymptomatic from the cardiac standpoint. Plan: Will begin PT and OT in the therapy today. He is nonweightbearing on this right leg for 2 weeks. Elevate is much as possible. He is can be started on anticoagulation from the cardiac standpoint. He is orthopedically okay for discharge. I did see him back 2 to 3 weeks out from surgery date. Any orthopedic questions can be directly [phone]. (2) Atrial flutter: (3) Type 2 diabetes mellitus: Admission and Anticipated Discharge Date Admission Date: September 25, 2024 Subjective 74-year-old gentleman postop day 1 from ORIF of right trimalar ankle fracture subluxation. He is doing well this morning. The block is still in effect. Really no pain. No other complaints. No chest pain no shortness of breath. He is hoping to go home today. Physical Exam Physical Exam: Physical examination is a pleasant middle-age male. He is lying bed looks comfortable. Examination of the right ankle reveals the splint to be in place. There is no signs of drainage. He still cannot really flex extend his toes yet. He is got brisk refill. Results & Data Vital Signs (Past 12 Hours) Vital Signs Temp Pulse Pulse Resp BP Pulse Ox O2 Del Method 09/28/24 07:00 36.7 C 68 16 132/88 97 Room Air 09/28/24 02:54 36.4 C L 82 18 149/73 H 96 Room Air 09/28/24 02:53 Room Air 09/28/24 02:49 99 H 09/27/24 22:57 36.4 C L 88 18 142/96 H 96 Room Air 09/27/24 20:00 36.7 C 93 H 18 147/84 H 94 Room Air Laboratory Results Labs are pending. (3) Type 2 diabetes mellitus Diabetes mellitus jail insulin use: without jail use Diabetes mellitus complication status: without complication Qualified Code(s): E11.9 - Type 2 diabetes mellitus without complications
[2024-09-28 07:40] LABS: Hematocrit (blood only) 38.8 % (42.0-52.0); Hemoglobin 13.6 g/dl (14.0-18.0); Mean Corpuscular Hemoglobin 33.1 pg (25.0-34.0); Mean Corpuscular Hgb Conc 35.1 g/dL (32.0-36.0); Mean Corpuscular Volume 94.4 fL (80.0-100.0); Mean Platelet Volume 9.1 fL (9.4-12.4); Platelet Count 187 K/uL (130-400); RDW Coefficient of Variation 11.7 % (11.5-14.5); RDW Standard Deviation 40.6 fL (36.4-46.3); Red Blood Count 4.11 M/uL (4.70-6.10); White Blood Count 8.99 K/ul (4.8-10.8)
[2024-09-28 08:00] LABS: BUN Creatinine Ratio 25.6 (10-20); Calcium 9.1 mg/dl (8.6-10.3); Creatinine Clr Calc Pharmacy 93.6 ml/min; Potassium 4.3 mmol/L (3.5-5.1)
[2024-09-28] MEDS ORDERED: MULTIVITAMIN TAB PO SCH (09:00)
[2024-09-28] MEDS: dexAMETHasone 10 MG in SYRINGE 0 ML IV SCH (09:11)
[2024-09-28] MEDS: APIXABAN 5 MG TABLET PO SCH (10:11)
[2024-09-28 11:17] VITALS: RESP 18
[2024-09-28] MEDS: oxyCODONE HCL IR 5 MG TAB (IMMEDIATE RELEASE) PO PRN (12:54)
--- NOTE | 2024-09-28 14:34 | Pharmacy Report ---
Pharmacy Glycemic Short Note 2 - Date of Service September 28, 2024 - Glycemic Short BSG Results (Last 24 hours): 09/27/24 09/27/24 09/27/24 15:30 16:33 20:38 Glucose POC Glucose 201 H 274 H 303 H* 09/28/24 09/28/24 09/28/24 03:04 07:00 07:01 Glucose 121 H POC Glucose 206 H 134 H 09/28/24 11:08 Glucose POC Glucose 183 H OUTPATIENT ANTIDIABETIC REGIMEN: * Invokana * Metformin ASSESSMENT: * Naun is a 74 yo T2DM POD #1 s/p right trimalar ankle fracture ORIF. Oral anti-diabetic agents held on admission. * Patient was ordered a one time dose of basal insulin (Lantus 20 units for severe hyperglycemia s/p administration of dexamethasone IV). * Fasting BSG = 134 mg/dL this AM which is acceptable. Will hold off on ordering additional basal insulin until additional fasting BSG data is available. * Novolog parameters were tightened this morning. Will likely be able to loosen tomorrow after dexamethasone has worn off. PLAN FOR INPATIENT GLYCEMIC CONTROL: * Hold outpatient oral diabetes medications * Basal insulin * Lantus 20 units SQ x 1 * Bolus insulin * NovoLog per scale ACHS or Q6hrs while NPO * Goal Range: Low 100 mg/dL - High 140 mg/dL * Correction Factor: 20 mg/dL/unit * Nutritional / Prandial insulin per carb ratio of 1 unit per 7 grams CHO consumed
[2024-09-28 15:01] VITALS: BP 154/83; TEMP 98.1; O2SAT 96
[2024-09-28] MEDS ORDERED: APIXABAN 5 MG TABLET PO SCH (16:00)
[2024-09-28 16:31] VITALS: PULSE 91
--- NOTE | 2024-09-28 20:00 | Discharge Summary ---
Discharge Summary Date of Service September 28, 2024 Principal Dx & Hospital Course #1 = Principal Diagnosis (1) Bimalleolar ankle fracture: (2) Atrial flutter: (3) Type 2 diabetes mellitus: (4) HTN (hypertension): (5) Obstructive sleep apnea: (6) Hyperlipidemia LDL goal <100: (7) BPH (benign prostatic hyperplasia): (8) DVT prophylaxis: Plan 74 year old male with history of T2DM, HTN, hyperlipidemia, BPH, and TRACI (noncompliant with CPAP) presented to the ER via EMS after falling in his yard on 09/25. Imaging on admission revealed a complex right ankle fracture involving b/l malleoli. Seen by orthopedics and right ankle placed in splint in ED. Mr. Lisa was found to be in new-onset rate-controlled atrial flutter. Due to this, surgical intervention was postponed until 09/27 to allow for cardiology workup and evaluation. #Right bimalleolar ankle fracture Orthopedic surgery consulted - s/p right ankle ORIF 09/27. Non-weightbearing status x 2 weeks postop, keep splint and dressing clean/dry/in place, elevate right leg as much as possible, keep all pressure off heel Vit D low at 17.9 - started/continued on Cholecalciferol 25 mcg PO daily. Recommend repeating 25-OH Vit D level in 3-4 months Pain regimen: Tylenol, oxycodone 5-10 mg q6h prn breakthrough pain #New-onset rate-controlled A flutter No history of arrhythmias. Has been reportedly asymptomatic regarding this. Recent TSH WNL, mag WNL Echocardiogram with EF 55-60%, no regional wall motion abnormalities, severe concentric left ventricular hypertrophy, mild MR Started Eliquis 5 mg BID - coupon for first month free provided on discharge Remained rate controlled Cardiology consulted - follow-up outpatient for cardioversion #T2DM Home regimen includes metformin 1000 mg BID, Invokana 300 mg daily, ramipril 5 mg daily A1c elevated at 8.0% - recommend adjustment to regimen in outpatient setting SSI while hospitalized #HTN Resumed ramipril 5 mg postoperatively #TRACI Although he was diagnosed with TRACI in the past and prescribed CPAP he has not used the machine in several years Counselled on importance of sleep apnea treatment regarding arrhythmias Recommend sleep medicine referral - will defer to PCP #Recent URI - CXR unremarkable. COVID/flu/RSV checked and negative. Stable on room air #Hyperlipidemia - continue atorvastatin 10 mg HS #DVT proph - SCD on LLE preop, started Eliquis postoperatively Dispo: discharged home with Home Health services 09/28 Notes For Next Care Provider Recommend referral to sleep medicine for reevaluation for CPAP Recommend follow-up with cardiology in 4 weeks for cardioversion Medication Changes From Visit Started Eliquis 5 mg BID Started Cholecalciferol 25 mcg PO daily Oxycodone 5-10 mg q6h prn breakthrough pain Admission HPI Per Admitting Provider 74yo male with history of T2DM, HTN, hyperlipidemia, and TRACI (noncompliant with CPAP) presented to the ER via EMS after falling in his yard earlier today. He reports he had been doing outside yard work and slipped on mud on an area of the grass that is sloped. He fell to the ground with his right leg caught underneath his body. He had immediate pain in his right ankle. Denies any other injury or pain in any other location. He knew he couldn't get up or weight bear so he called his to tell her what happened. Subsequently 911 was called and EMS was summoned to his home. In the ambulance the EMS providers noted he was in aflutter vs afib. Upon arrival to [facility] he was placed on monitors and was in a variable block aflutter with rates <100. He denies any recent palpitations or tachycardia. Denies any chest pain, dizziness or dyspnea prior to his fall today. He keeps an active lifestyle and in fact continues to work part-time at the [place] [employer]. Orthopedics was consulted in the ER after x-rays of the right ankle revealed a bimalleolar fracture. Orthopedics placed Mr Lisa's ankle in a splint. To Mr Lisa's recollection he has never been diagnosed with aflutter or afib. Discharge Exam General: No acute distress, nondiaphoretic, well-developed, well-nourished. Cardiac: Atrial flutter, rates in 80s. No murmur appreciated. Well-perfused. Pulm: Clear to auscultation bilaterally without wheezes, rales or rhonchi. Normal respiratory effort. 96% on room air. Abdominal: Soft, nontender, nondistended. Bowel sounds present. Neuro: A&O x3. No focal neurological deficits. MSK/Extremities: RLE in splint. Wiggles toes without difficulty. Cap refill <2 seconds. Discharge Plan Discharge Items Patient Disposition: Home - Home Health Services Reason For Visit: R ANKLE FRACTURE NEW ONSET A FLUTTER Discharge Diagnosis: Right Ankle Fracture/Dislocation Activity: Per Instructions section Activity Comment: Nonweightbearing right leg. Keep all pressure off heel Weightbearing: Right non-weightbearing Weightbearing Comment: Elevate leg as much as possible. Keep all pressure off heel Non-emergency contact: Primary Care Provider and Surgeon Call non-emergency contact if: you have any medication questions, your symptoms worsen and your pain is not controlled Follow-up/Referrals: Vivek Helton MD [Physician] - (Follow-up within 1 month) Harry Powers MD [Physician] - (Follow-up in 2-3 weeks) Janessa Rivera CRNP [Primary Care Provider] - 10/09/24 10:30 am (Follow-up in 1-2 weeks Primary care follow up scheduled on 10/09/24 at 10:30 with Janessa GÓMEZ) Diet: Carb Consistent or DM2 Addtl Attending Provider Instructions: Mr. Lisa, Rogelio were admitted to the hospital after a fall resulted in a complex right ankle fracture. This was surgically repaired by Dr. Powers, and you tolerated the surgery well with no complications. Please follow the instructions from the ortho surgery team listed below. You were also found to be in new-onset rate-controlled atrial flutter ("A flutter" - a type of heart arrhythmia). Because of this, you have been started on Eliquis (a blood thinner) 5 mg twice daily. This is to reduce the risk of stroke associated with atrial flutter. You will follow-up with cardiology outpatient for further management. Upon discharge from the hospital: * Take Eliquis 5 mg twice daily. A coupon card has been provided to you to get your first month free. * Take Tylenol 1,000 mg every 8 hours as needed for pain. Use this as your first line pain medication. * Take oxycodone 5-10 mg every 6 hours as needed for breakthrough pain. Oxy codone is a narcotic medication, so do not drive or operate heavy machinery while taking this. * Continue your other home medications as prescribed. * Follow-up with your PCP in 1-2 weeks. * Follow-up with orthopedic surgery in 2-3 weeks. * Follow-up with cardiology in 4 weeks. * Home health has been set up for you. A walker has been provided to you prior to leaving the hospital. Please return to the hospital if you experience any of the following: Uncontrolled bleeding, uncontrolled pain, chest pain, heart palpitations, shortness of breath, dizziness, lightheadedness, passing out, confusion, or any other symptoms concerning for you. It was a pleasure taking care of you while you were in the hospital! Addtl Account Development Manager Provider Instructions: Keep splint and dressing clean, dry, and in place. Elevate right leg as much as possible. Keep all pressure off heel. Nonweightbearing on right leg for 2 weeks. Pending Studies at Discharge: No Stand-Alone Forms: My [facility] [place], Work/School Release, Smoking Cessation Medications and DC Order Prescriptions: New oxycodone 5 mg Tablet 5 - 10 mg PO Q6H PRN (Reason: pain) Qty: 20 0RF Eliquis 5 mg Tablet 5 mg PO BID Qty: 60 0RF cholecalciferol (vitamin D3) 25 mcg (1,000 unit) Capsule 25 mcg PO QAM Qty: 30 0RF Continued metformin 1,000 mg tablet 1,000 mg PO BID Qty: 180 3RF ramipril 5 mg capsule 5 mg PO QAM Qty: 90 3RF atorvastatin 10 mg tablet 10 mg PO HS Qty: 90 3RF Rx Instructions: for cholesterol multivitamin [Multiple Vitamins] tablet 1 tab PO QAM (DME) OneTouch Verio test strips Strip See Rx Instructions .ROUTE .MEDSUPPLY Qty: 50 3RF Rx Instructions: test twice daily. (DME) blood-glucose meter [OneTouch Verio Flex Start] Kit See Rx Instructions .ROUTE .MEDSUPPLY Qty: 1 0RF Rx Instructions: As directed (DME) lancets [OneTouch Delica Lancets] 33 gauge misc See Rx Instructions .ROUTE .MEDSUPPLY Qty: 100 0RF Rx Instructions: As directed Invokana 300 mg tablet 300 mg PO DAILY Discharge Orders: Discharge Order (Routine); Ordered 09/28/24 Ordered By: Yolande Clemons Admission Data Admit Date/Time: 09/25/24 18:17 Attending Provider: Patrick Blackman Admit Provider: William Gallardo Primary Care Provider: Janessa Rivera Other Providers: Vivek Helton; Chuck Walls; [facility] Fax Other Interventions: Discharge Summary Assessment (RN) Last Done: 09/28/24 16:25 Hospital Stay Data Consultations 09/25/24 18:17 Consult Cardiology Routine Consult Orthopedic Surgery Routine Procedures Performed Operation Date: 09/27/24 14:00 Actual Procedures p Right Ankle Open Reduction Internal Fixation(Right) - Harry Powers MD Diagnostic Imagining Performed Ankle X-Ray 09/25/24 13:25 XR ankle RT min 3V routine CLINICAL HISTORY: fall COMPARISON: None FINDINGS: There is an oblique fracture of the distal fibular shaft. There is an avulsion fracture of the medial malleolus. There is medial translation of the distal tibia in relationship to the talar dome. On the lateral view, the posterior malleolus appears intact. Posterior aspect of the talar dome is flattened and an associated posterior talar fracture is not excluded. IMPRESSION: Unstable bimalleolar fracture with posterior and medial displacement of the distal tibia in relationship to the talus. Flattening of the talar dome on the lateral view suggestive of an associated posterior talar fracture. ACT 112: Negative or not required by law. Electronically signed by: Vinita Diego M.D. 09/25/2024 1:42 PM Chest X-Ray 09/25/24 13:25 XR chest 1V portable CLINICAL HISTORY: new afib COMPARISON STUDY: 03/28/2020 FINDINGS: Single view portable chest is unchanged demonstrating cardiomegaly and mild pulmonary vascular congestion. No airspace opacity or pleural effusion. There is no pneumothorax. There is no mediastinal widening. IMPRESSION: Stable exam; no acute process identified. ACT 112: Negative or not required by law. Electronically signed by: Vinita Diego M.D. 09/25/2024 1:43 PM Ankle X-Ray 09/25/24 16:30 Clinical History: Postreduction 2 views of the right ankle are submitted for review. No prior examination is available for comparison Findings: There is an acute comminuted fracture of the medial malleolus with mild displacement. There is an acute fracture of the distal fibular shaft and metaphysis with mild displacement. There is a mild displaced fracture of the posterior malleolus. Cast material is in place, which obscures fine bony detail. No subluxation or dislocation is seen. There is a dorsal calcaneal spur. No significant arthritic changes are noted. No other osseous abnormality is identified. There are no radiopaque foreign bodies. Impression: Acute fractures of the medial malleolus, posterior malleolus, and the distal fibular shaft and metaphysis ACT 112: Positive. There are findings on this exam that require communication between the performing entity and the patient following Patient Test Result Information Act ([place] ACT 112) guidelines. Electronically signed by Kana Stanton 09-25-2024 5:04 PM Ankle X-Ray 09/27/24 06:30 FL ankle RT min 3V RTN CLINICAL HISTORY: ORIF of right ankle COMPARISON STUDY: 09/25/2024 FLUOROSCOPY TIME: 13 seconds FLUOROSCOPY IMAGES: 4 EXPOSURE DOSE: 0.2 mGy FINDINGS: Fluoroscopy was provided for internal fixation of the right ankle. IMPRESSION: Intraoperative fluoroscopy. ACT 112: Negative or not required by law. Electronically signed by: Allen Martinez M.D. 09/27/2024 2:48 PM Pending Results Patient Have Any Pending Studies at Discharge: No Discharge Instructions Given to Patient (Per Discharging Provider) Mr. Lisa, Rogelio were admitted to the hospital after a fall resulted in a complex right ankle fracture. This was surgically repaired by Dr. Powers, and you tolerated the surgery well with no complications. Please follow the instructions from the ortho surgery team listed below. You were also found to be in new-onset rate-controlled atrial flutter ("A flutter" - a type of heart arrhythmia). Because of this, you have been started on Eliquis (a blood thinner) 5 mg twice daily. This is to reduce the risk of stroke associated with atrial flutter. You will follow-up with cardiology outpatient for further management. Upon discharge from the hospital: * Take Eliquis 5 mg twice daily. A coupon card has been provided to you to get your first month free. * Take Tylenol 1,000 mg every 8 hours as needed for pain. Use this as your first line pain medication. * Take oxycodone 5-10 mg every 6 hours as needed for breakthrough pain. Oxycodone is a narcotic medication, so do not drive or operate heavy machinery while taking this. * Continue your other home medications as prescribed. * Follow-up with your PCP in 1-2 weeks. * Follow-up with orthopedic surgery in 2-3 weeks. * Follow-up with cardiology in 4 weeks. * Home health has been set up for you. A walker has been provided to you prior to leaving the hospital. Please return to the hospital if you experience any of the following: Uncontrolled bleeding, uncontrolled pain, chest pain, heart palpitations, shortness of breath, dizziness, lightheadedness, passing out, confusion, or any other symptoms concerning for you. It was a pleasure taking care of you while you were in the hospital! Total Time Total Time Spent Total Time Spent (In Minutes): Greater than 30 minutes spent completing this discharge process including direct patient care, medication reconciliation, documentation, review of labs and images, and coordination of care. Coding Level of Care Code 19888 INP/OBS DISCH >30 MIN Diagnoses Bimalleolar ankle fracture S82.843A Atrial flutter I48.92 Type 2 diabetes mellitus without complication, without long-term current use of insulin E11.9 Diabetes mellitus complication status: without complication Diabetes mellitus skilled nursing insulin use: without superintendent container terminal use Essential hypertension I10 Hypertension type: essential hypertension Obstructive sleep apnea G47.33 Hyperlipidemia LDL goal <100 E78.5 BPH (benign prostatic hyperplasia) N40.0 DVT prophylaxis Z29.9
[2024-09-29] MEDS ORDERED: ENALAPRIL MALEATE 10 MG TAB PO SCH (09:00)
== END 2024-09-28 17:32 | disposition home health service (06) | DRG 493 ==
LOC: ED 13:08 → 2S 18:17 → SUATTDRO 18:17 → 2S 20:30